=== PATIENT | male | born 1975 | race Caucasian/White ===

== ENCOUNTER 2023-11-18 12:51 | Outpatient (AMB) | payer MEDICARE, MEDICAID, SELFPAY ==
--- NOTE | 2023-11-18 14:09 | MHC.OFFWIV ---
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 He states he cut his finger on a mattress when he was cutting the matress up. He states the metal part of the mattress is what cut him. He states he is unsure if he is up to date on his tetanus vaccine. 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 Cut his finger while throwing a mattess down. PFSH Social History Patient Tobacco Use Status: Current someday Tobacco user Physical Exam Vital Signs: Last Vital Signs Temp 97.0 F 11/18/23 14:16 Pulse 94 11/18/23 14:16 BP 138/76 11/18/23 14:16 Pulse Ox 98 11/18/23 14:16 Oxygen Delivery Method Room Air 11/18/23 14:16 BMI result Body Mass Index 36.7 Skin Other: Left hand: 3 digit, 4 cm laceration on the volar aspect of the finger. Office Procedures Laceration Repair Laceration repair performed by: Richie Card Explained risks and benefits to parent: Yes Location: Left hand3 digit Length: 4 cm Sedation: No Anesthesia: 1% lidocaine Irrigation: saline Preparation: betadine Wound exploration: none Deep closure: No Skin closure: nylon Technique: 4 sutures applied, pt tolerated the procedure well Topical treatment: triple antibiotic Tetanus toxoid ordered: Yes Patient tolerated procedure: well [place]: [place] [id number] Repair 2.6-7.5cm Procedure code (CPT) selection complete Assessment & Plan Assessment & Plan (1) Laceration of finger: Code(s): S61.219A - Laceration without foreign body of unspecified finger without damage to nail, initial encounter Plan Pt to keep hand elevated. Return in one week for suture removal. Orders: Orders Laceration repair Today S61.219A - Laceration without foreign body of unspecified finger without damage to nail, initial encounter Td Immunization Today Z23 - Encounter for immunization Laceration repair Today S61.219A - Laceration without foreign body of unspecified finger without damage to nail, initial encounter Medications: New Tenivac (PF) (tetanus and diphther. tox (PF)) 0.5 mL IM ONCE 0.5 mL 0RF NS Z23 - Encounter for immunization Coding Level of Care Code Est Pt Level 3 (88817) Diagnoses Laceration of finger S61.219A
[2023-11-18 14:16] VITALS: BP 138/76; PULSE 94; TEMP 36.1; O2SAT 98; BMI 36.7
== END 2023-11-18 15:27 | disposition home or self-care (01) ==
PROVIDERS: Visit Provider Internal Medicine
DX: S61.219A Laceration without foreign body of unspecified finger without damage to nail, initial encounter (principal); Z23 Encounter for immunization
CPT/HCPCS: 90471; 90715; 99213

== ENCOUNTER 2023-11-25 08:48 | Outpatient (AMB) | payer MEDICARE, MEDICAID, SELFPAY ==
[2023-11-25 09:10] VITALS: BP 140/80; PULSE 97; TEMP 36.2; O2SAT 98; BMI 36.5
--- NOTE | 2023-11-25 09:10 | AM.OFFWIN_ITS ---
Intake Vital Signs 11/25/23 09:10 Height 6 ft 1 in Weight 277 lb BMI 36.5 BP 140/80 H Blood Pressure Location Lt brachial Position Sitting Pulse 97 Temp 97.2 F Temp Source Temporal Artery Scan Pulse Oximetry (%) 98 Oxygen Delivery Method Room Air Intake Visit Reasons: EP stitches F/U 11/17 Intake Note: ptis here today for stitches F/U Patient Tobacco Use Status: Current someday Tobacco user Allergies No Known Allergies Allergy (Verified 11/25/23 09:13) Do you need a note to return to daycare/school/sports/work: No HPI HPI Comments History of Present Illness Details Patient presents to the walk-in today for sick visit Had stitches placed last week, here for removal Denies any fevers, chills, discharge, redness, warmth PFSH Social History Patient Tobacco Use Status: Current someday Tobacco user Review of Systems Const All systems reviewed & are unremarkable except as noted in HPI and below Physical Exam Vital Signs: Last Vital Signs Temp 97.2 F 11/25/23 09:10 Pulse 97 11/25/23 09:10 BP 140/80 H 11/25/23 09:10 Pulse Ox 98 11/25/23 09:10 Oxygen Delivery Method Room Air 11/25/23 09:10 BMI result Body Mass Index 36.5 General: awake, alert, oriented. Answers questions appropriately. Fully engaged in examination. Skin: 3 sutures to left middle finger removed. laceration healing well. no bleeding, redness, warmth, discharge. HEENT: Normocephalic. Hearing intact. Respiratory: No cough, audible wheezing or stridor. MS: No obvious swelling or deformities. Neurological: Oriented to person, place, time and situation. Psychiatric: Appropriate mood and affect. Good judgment and insight. Assessment & Plan Assessment & Plan (1) Visit for suture removal: Code(s): Z48.02 - Encounter for removal of sutures (2) Visit for wound check: Code(s): Z51.89 - Encounter for other specified aftercare Plan Three sutures to the left middle finger removed. Patient tolerated well. Band- Aid applied. Laceration healing well, no signs of local or systemic infection. Follow up with PCP or return here for any new or worsening symptoms. Coding Level of Care Code Est Pt Level 3 (80832) Diagnoses Visit for suture removal Z48.02 Visit for wound check Z51.89
== END 2023-11-25 10:01 | disposition home or self-care (01) ==
PROVIDERS: Visit Provider Registered Nurse Emergency
DX: Z48.02 Encounter for removal of sutures (principal); Z51.89 Encounter for other specified aftercare
CPT/HCPCS: 15853; 99213

== ENCOUNTER 2023-12-04 21:02 | Inpatient (IN) | payer MEDICARE, MEDICAID, SELFPAY ==
--- NOTE | ~2023-12-04 | XR_ITS ---
EXAMINATION: XR SINUSES CLINICAL INFORMATION: Patient COMPARISON: None available. TECHNIQUE: 3 views of the sinuses were obtained. FINDINGS: Partial opacification of the left maxillary sinus. XR/XR sinus min 3V IMPRESSION: Partial opacification of the left maxillary sinus, which could be better evaluated with a CT sinuses or ENT evaluation if warranted clinically.
--- NOTE | ~2023-12-04 | XR_ITS ---
EXAMINATION: XR CHEST CLINICAL INFORMATION: Reason for Exam congestion COMPARISON: None TECHNIQUE: 2 views of the chest FINDINGS: Lines and tubes: None. Clear lungs. No pleural effusion. No pneumothorax. Normal cardiomediastinal silhouette. XR/XR chest 2V IMPRESSION: * Clear lungs.
[2023-12-04 21:05] VITALS: BP 145/92; PULSE 108; RESP 18; TEMP 37; O2SAT 94; BMI 36.5
--- NOTE | 2023-12-04 21:18 | MHC.CARE ---
[facility] called. Pt was seen in community for SI. Disclosed he was sitting on bed with cord, contemplating completing suicide. Pt has no current community providers. Father completed suicide- Voluntary IPLOC
[2023-12-04 21:51] LABS: Hematocrit 44.9 % (42.0-52.0); Mean Corpuscular HGB Conc 33.4 g/dl (31.0-36.0); Mean Corpuscular Hemoglobin 27.6 pg (27.0-33.0); Mean Corpuscular Volume 82.7 fL (80.0-98.0); Mean Platelet Volume 10.1 fL (9.4-12.4); Platelet Count 315 X10*3/uL (160-400); Red Blood Count 5.43 X10*6/uL (4.60-5.80); Red Cell Distribution Width 15.6 % (11.0-16.0)
[2023-12-04 21:53] LABS: WBC ABN SCTR FOR CBC 1
--- NOTE | 2023-12-04 21:53 | ED_ITS ---
HPI - Psych General Chief Complaint: Psychiatric Symptoms Stated Complaint: crisis Time Seen by Provider: 12/04/23 21:41 Source: patient Mode of arrival: ambulatory Limitations: no limitations History of Present Illness HPI Narrative: Patient comes to the emergency room complaining of suicidal ideation. Patient states that he has had SI in the past, but denies any recent attempts. Patient states that he was at home, considering committing suicide by wrapping the extension cord around his neck. Patient denies HI, patient denies any recent alcohol abuse or drug use. Patient denies being on any medications. Related Data Home Medications ?Medication ?Instructions ?Recorded ?Confirmed No Known Home Meds 11/18/23 11/18/23 Allergies Allergy/AdvReac Type Severity Reaction Status Date / Time No Known Allergies Allergy Verified 12/04/23 21:14 Review of Systems 2 Review of Systems: Constitutional : No Weight loss, No Fever, No Chills, No Night Sweats, No Fatigue, No Malaise ENT/Mouth : No Hearing loss, No Ear Pain, No Nasal Congestion, No Sinus Pain, No Hoarseness, No sore throat, No Rhinorrhea, No Swallowing Difficulty Eyes: No Eye Pain, No Swelling, No Redness, No Foreign Body, No Discharge, No Vision Changes Cardiovascular : No Chest Pain, No SOB, No Dyspnea on Exertion, No Orthopnea, No Edema, No Palpitations Respiratory : No Cough, No Sputum, No Wheezing, No Smoke Exposure, No Dyspnea Gastrointestinal : No Nausea, No Vomiting, No Diarrhea, No Constipation, No abdominal Pain, No Hematochezia, No Melena Genitourinary : no irregular bleeding, No Dysuria, No Urinary Frequency, No Hematuria, No Urinary Incontinence, No Urgency, No Flank Pain, No Urinary Flow Changes, No Hesitancy Musculoskeletal : No joint pain, No Myalgias, No Joint Swelling Skin : No Skin Lesions, No rash Neuro : No Weakness, No Numbness, No Paresthesias, No Loss of Consciousness, No Dizziness, No Headache Psych : Complaining of depression, SI, no HI, denies substance abuse Heme/Lymph: No Bruising, No Bleeding,No Lymphadenopathy Endocrine : No Polyuria, No Polydipsia, No Temperature Intolerance PMFSH Past Medical History Medical History (Updated 12/04/23 @ 21:57 by Eli Khalil MD) Suicidal thoughts Social History Social History Patient Tobacco Use Status: Current someday Tobacco user Advance Directives: No Advance Directives Information Provided: No Physical Exam 2 Vital Signs: Vital Signs: Last Vital Signs Temp 98.6 F 12/04/23 21:05 Pulse 108 H 12/04/23 21:05 Resp 18 12/04/23 21:05 BP 145/92 H 12/04/23 21:05 Pulse Ox 94 12/04/23 21:05 O2 Del Method Room Air 12/04/23 21:05 BMI result Body Mass Index 36.5 Const: Other: Appearance: Alert. Oriented X3. No acute distress. Eyes: Pupils equal, round and reactive to light. ENT: Pharynx normal. Neck: Normal inspection. Neck supple. No lymph nodes noted. No crepitus CVS: Normal heart rate and rhythm. Pulses normal. Normal S1 and S2 Respiratory: No respiratory distress. Breath sounds normal. No Wheezing. No rales Abdomen: Soft and nontender. No rigidity. No distention. Skin: Skin warm and dry. Normal skin color. Normal skin turgor. Extremities: No lower extremity edema. No Lacerations. No Rash Neuro: Oriented X 3. No motor deficit. No sensory deficit. Moving all extremities. No slurred speech. CN 2 through 12 grossly intact Psych: calm, cooperative, normal affect Course Course Course Narrative: -patient calm, cooperative -all of patient's labs pending -care team consult pending -patient is on a Section 12 -physician observation started at 21:55 Medications Administered Generic Name Dose Route Start Last Admin Trade Name Freq PRN Reason Stop Dose Admin Nicotine Polacrilex 2 mg 12/04/23 21:49 12/04/23 23:41 Nicotine Polacrilex 2 Mg Gum BUCCAL 12/06/23 23:59 2 mg QID PRN Administration Nicotine Cravings Medical Decision Making Medical Decision Making MDM Narrative: -the care team evaluate the patient, patient is now inpatient bed search, remains on a Section 12 Differential Diagnosis Differential Diagnoses: The differential diagnosis associated with the presentation includes (Anxiety, depression) Admission/Observation Consideration of admission/observation: Escalation of care including admission/observation considered (Section 12 waiting for the care team to be evaluated) Lab Data 12/04/23 21:44 12/04/23 21:44 Labs: Lab Results 12/04/23 12/04/23 Range/Units 21:33 21:44 WBC 12.2 H (4.8-10.8) X10*3/uL RBC 5.43 (4.60-5.80) X10*6/uL Hgb 15.0 (14.0-18.0) g/dl Hct 44.9 (42.0-52.0) % MCV 82.7 (80.0-98.0) fL MCH 27.6 (27.0-33.0) pg MCHC 33.4 (31.0-36.0) g/dl RDW 15.6 (11.0-16.0) % Plt Count 315 (160-400) X10*3/uL MPV 10.1 (9.4-12.4) fL Immature Gran % (Auto) Cancelled Neut % (Auto) Cancelled Lymph % (Auto) Cancelled [place] % (Auto) Cancelled Eos % (Auto) Cancelled Baso % (Auto) Cancelled Lymph # (Auto) Cancelled [place] # (Auto) Cancelled Eos # (Auto) Cancelled Baso # (Auto) Cancelled Abs Immat Gran (auto) Cancelled Absolute Neuts (auto) Cancelled Absolute Nucleated RBC 0.000 (0.0-0.012) X10*3/uL Nucleated RBC % (auto) 0.0 (0.0-0.2) /100WBC Neutrophils % (Manual) 66 (45-73) % Band Neutrophils % 0 L (3-5) % Lymphocytes % (Manual) 29 (20-40) % Monocytes % (Manual) 4 (2-11) % Eosinophils % (Manual) 1 (0-4) % Abs Neuts (Manual) 8.1 (2.0-8.3) X10*3/uL Lymphocytes # (Manual) 3.5 (1.2-4.9) X10*3/uL Monocytes # (Manual) 0.5 (0.1-1.2) X10*3/uL Eosinophils # (Manual) 0.1 (0.0-0.4) X10*3/uL Platelet Estimate NORMAL (NORMAL) Plt Morphology Comment NORMAL RBC Morphology NORMAL Sodium 144 (135-145) mmol/L Potassium 3.8 (3.3-5.1) mmol/L Chloride 109 H (96-108) mmol/L Carbon Dioxide 22 (22-29) mmol/L Anion Gap 17 (12-20) BUN 13 (9-16) mg/dL Creatinine 1.11 (0.5-1.4) mg/dL Estim Creat Clear Calc 115.4 Estimated GFR > 60 Fasting Glucose 99 (60-99) mg/dL Calcium 9.7 (8.4-10.2) mg/dL Total Bilirubin 0.4 (0.0-1.0) mg/dL AST 17 (5-37) U/L ALT 17 (0-40) U/L Alkaline Phosphatase 90 (39-117) U/L Total Protein 8.3 H (6.5-8.0) g/dL Albumin 4.5 (3.5-5.0) g/dL Urine Color Dark Yellow Urine Appearance Clear Urine pH 5.5 (5.0-9.0) Ur Specific [place] >= 1.030 H (1.005-1.025) Urine Protein 30 (1+) H (Neg-Trace) mg/dL Urine Glucose (UA) Negative (Negative) mg/dL Urine Ketones Trace (Negative) mg/dL Urine Blood Negative (Negative) Urine Nitrite Negative (Negative) Ur Leukocyte Esterase Negative (Negative) Urine RBC 0-2 (0-2) /HPF Urine WBC 0-5 (0-5) /HPF Ur Squamous Epith Cells 0-2 (0-2) /HPF Urine Bacteria None Seen (None Seen) Hyaline Casts 0-2 (0-2) /LPF Salicylates < 5.0 L (15-30) mg/dL Urine Opiates Screen Not Detected (Not Detect) Ur Buprenorphine Scrn Not Detected (Not Detect) ng/mL Ur Oxycodone Screen Not Detected (Not Detect) ng/mL Urine Methadone Screen Not Detected (Not Detect) ng/mL Urine Fentanyl Screen Not Detected (Not Detect) Acetaminophen < 3 (<30) mcg/mL Ur Barbiturates Screen Not Detected (Not Detect) Ur Phencyclidine Scrn Not Detected (Not Detect) Ur Amphetamines Screen Not Detected (Not Detect) U Benzodiazepines Scrn Not Detected (Not Detect) Urine Cocaine Screen Not Detected (Not Detect) U Marijuana (THC) Screen Not Detected (Not Detect) Ethyl Alcohol < 10 mg/dL Discharge Plan Discharge Clinical Impression: Suicidal ideation Patient Disposition: Still a Patient Prescriptions: No Action No Known Home Meds Interventions: [place]-Suicide Risk Severity Scale Last Done: 12/04/23 22:04 Print Language: Burkinan
[2023-12-04 22:07] LABS: Acetaminophen LAB < 3 mcg/mL (<30); Salicylate < 5.0 mg/dL (15-30)
[2023-12-04 22:08] LABS: Alanine Aminotransferase 17 U/L (0-40); Albumin Level 4.5 g/dL (3.5-5.0); Alkaline Phosphatase 90 U/L (39-117); Anion Gap 17 (12-20); Aspartate Amino Transferase 17 U/L (5-37); Bilirubin Total 0.4 mg/dL (0.0-1.0); Blood Urea Nitrogen 13 mg/dL (9-16); Calcium 9.7 mg/dL (8.4-10.2); Carbon Dioxide 22 mmol/L (22-29); Chloride 109 mmol/L (96-108); Creatinine Clr Calc Pharmacy 115.4; Estimated Glomerular Filt Rate > 60; Ethanol < 10 mg/dL; Glucose Fasting 99 mg/dL (60-99); Potassium 3.8 mmol/L (3.3-5.1); Sodium 144 mmol/L (135-145); Total Protein 8.3 g/dL (6.5-8.0)
[2023-12-04 22:08] LABS: Amphetamine Screen Urine Not Detected (Not Detect); Barbiturates, Urine Not Detected (Not Detect); Benzodiazepines Screen Urine Not Detected (Not Detect); Buprenorphine Scr Not Detected (Not Detect); Cannabinoid Screen Urine Not Detected (Not Detect); Cocaine Screen Urine Not Detected (Not Detect); Fentanyl, urine Not Detected (Not Detect); Methadone Screen, Urine Not Detected (Not Detect); Opiate Screen Urine Not Detected (Not Detect); Oxycodone Screen Urine Not Detected (Not Detect); Phencyclidine Screen Urine Not Detected (Not Detect)
[2023-12-04 22:12] LABS: Appearance Urine Clear; Color Urine Dark Yellow; Glucose Urine UA Negative (Negative); Leukocyte Esterase Urine Negative (Negative); Nitrite Urine Negative (Negative); PH 5.5 (5.0-9.0); Specific Gravity - Urine >= 1.030 (1.005-1.025); UMIC TRIGGER UACC YES; Urine Blood Negative (Negative); Urine Ketones Trace mg/dL (Negative); Urine Protein 30 (1+) mg/dL (Neg-Trace)
[2023-12-04 22:15] LABS: Eosinophils Percent Manual 1 % (0-4); Lymphocytes Percent Manual 29 % (20-40); Monocytes Percent Manual 4 % (2-11); Neutrophils Percent Manual 66 % (45-73)
[2023-12-04 22:16] LABS: Eosinophils Absolute Manual 0.1 X10*3/uL (0.0-0.4); Lymphocytes Absolute Manual 3.5 X10*3/uL (1.2-4.9); Monocytes Absolute Manual 0.5 X10*3/uL (0.1-1.2); Platelet Estimate NORMAL (NORMAL); Platelet Morphology Comment NORMAL; RBC Morphology NORMAL; White Blood Count 12.2 X10*3/uL (4.8-10.8)
[2023-12-04 22:17] LABS: Bacteria Urine None Seen (None Seen); Hyaline Casts Urine 0-2 /LPF (0-2); RBC Urine 0-2 /HPF (0-2); Squamous Epithelial Cell Urine 0-2 /HPF (0-2); WBC Urine 0-5 /HPF (0-5)
[2023-12-04 22:17] LABS: Band Neutrophils Percent 0 % (3-5); Neutrophils Absolute Manual 8.1 X10*3/uL (2.0-8.3)
[2023-12-04] MEDS: Nicotine Polacrilex 2 MG GUM BUCCAL (23:41)
[2023-12-05 04:43] VITALS: BP 128/92; PULSE 83; RESP 18; TEMP 36.8; O2SAT 95
[2023-12-05] MEDS: Nicotine Polacrilex 2 MG GUM BUCCAL ×3 (06:26→19:53)
[2023-12-05 10:38] VITALS: BP 131/94; PULSE 71; RESP 18; TEMP 36.7; O2SAT 98
[2023-12-05 13:34] VITALS: BP 132/81; PULSE 82; RESP 18; O2SAT 97; BMI 34.9
--- NOTE | 2023-12-05 14:09 | PC.ADMIT ---
Pt arrived to the unit from [facility] at 1320. Pt arrived via wheelchair with security & staff. Pt arrived to unit on a section 12. Pt came into the ED after being assessed by [facility] in the community for increased depression and SI. Pt was contemplating committing suicide with a cord he had in his bedroom. Pt currently lives in the [facility] in [place]. Pt is calm, cooperative, & pleasant. Poor eye contact. Pt does have a history of PTSD. Pt's father murdered his step-mom and then completed suicide when Patient was 15 years old. Pt was then sent to live with his biological mother who was an alcoholic. Pt does have a history of a prior suicide attempt. Pt used to superficially cut wrists. Pt has 1 prior suicide attempt around 5 years ago via hanging. Pt has not been on medications and has not had any outpatient providers for the past 5 years. Pt smokes 1/2 pack of cigarettes a day. Smoking cessation consult placed. Tox Screen Negative. Oriented to unit.
--- NOTE | 2023-12-05 14:58 | HO.PSYADMNOT ---
HPI Date of Service: 12/05/23 Chief Complaint: depression, si Sources of Information: patient interviewed, chart reviewed and crisis/core team assessment reviewed HPI Subjective Notes: Han Warning and Section 12B Healthcare Proxy: No Guardianship: No Medical Problems Affecting Mental Status: No Narrative: Pt is a 48 yo single male who was evaluated by [facility] mobile crisis at patietnt's request due to SI. He came to [facility] reporting Si with plan to strangle self with extension cord. Pt is a section 12 B. He reports at least a month of increasing depressiona nd SI. he reports the preciptant is the upcoming anniversary of his father's on December 28. Pt tells me that his father killed his step mother and then killed himself when client age 15. He says he usually leaves out the murder part. but that it was a murder suicide when his father killed himself. Pt reports witnessing years of Dv before this. He states he lived in [facility] at the time and had not seen his bio mother for years before this. He reports she is an alcoholic. Once his father his mother came to get him and he lived with her and her drinking for years - he moved to [place] then. He states he was in a children's home at when he was 16 or 17 yo. Pt states he has intrusive memories of trauma from his childhood; he denies nightmares but reports significant trouble sleeping at night with poor sleep initiation. he reports chronic intermittent SI. he feels isolated and feels no sense of purpose. He is not close to any family. he has a few male friends he talks to. He reports depressed mood. He makes little ey contact. He reports being able to contract for safety on unit and wants help. He is not on any meds now but has been on inpast- he is not sure if they helped. He reports interest in therapy and meds Pt denies any period of elation, manic behavior. He does report periods of being very easily frustrated or quick to anger- he says his coping skills were to get a coffee and smoke a cigarette to calm down. he denies every having been violent with others. He reports he used to use alcohol heavlily and stopped 2.5 yrs ago because he didn't like how he behaved when drunk. he denies THC or opiates any other street drug use. He smokes 1/2 ppd of cigarettes. He has no hx of legal problems. 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 He enjoys watching baseball, listening to music or taking a walk. Past Psychiatric History: IPLOC as teen and in adulthood. previous inpat at [facility] and [facility] but didn't know year. residential treatment as child in [place] and inpatient psych at [facility] age 17 previous meds: zoloft, paxil and lithium- does not recall if effective denies previous beck episodes. 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[employer], construction; last relationship 3 yrs ago - he reports very toxic; denies violence with others Substance History: etoh heavy use 2.5 yrs ago, tobacco use; no THC, No opiates, no cocaine, no other TELLEZ Trauma History: witness Dv as child, parental separation, father committed murder suicide when pt age 15, loss of parents, bio mo ETOHIC, as adult near experience with first episode TTP Diagnostics Vital Signs (24Hr): Vital Signs - 24 hr 12/04/23 21:05 12/05/23 04:43 12/05/23 10:38 Temperature 98.6 F 98.3 F 98.1 F Pulse Rate 108 H 83 71 Respiratory Rate 18 18 18 Blood Pressure 145/92 H 128/92 H 131/94 H Pulse Oximetry 94 95 98 Oxygen Delivery Method Room Air Room Air Room Air 12/05/23 13:34 Temperature Pulse Rate 82 Respiratory Rate 18 Blood Pressure 132/81 Pulse Oximetry 97 Oxygen Delivery Method Room Air BMI result Body Mass Index 34.9 Labs 12/04/23 21:44 12/04/23 21:44 Labs: Laboratory Results - last 48 hr 12/04/23 12/04/23 21:33 21:44 WBC 12.2 H RBC 5.43 Hgb 15.0 Hct 44.9 MCV 82.7 MCH 27.6 MCHC 33.4 RDW 15.6 Plt Count 315 MPV 10.1 Immature Gran % (Auto) Cancelled Neut % (Auto) Cancelled Lymph % (Auto) Cancelled [place] % (Auto) Cancelled Eos % (Auto) Cancelled Baso % (Auto) Cancelled Lymph # (Auto) Cancelled [place] # (Auto) Cancelled Eos # (Auto) Cancelled Baso # (Auto) Cancelled Abs Immat Gran (auto) Cancelled Absolute Neuts (auto) Cancelled Absolute Nucleated RBC 0.000 Nucleated RBC % (auto) 0.0 Neutrophils % (Manual) 66 Band Neutrophils % 0 L Lymphocytes % (Manual) 29 Monocytes % (Manual) 4 Eosinophils % (Manual) 1 Abs Neuts (Manual) 8.1 Lymphocytes # (Manual) 3.5 Monocytes # (Manual) 0.5 Eosinophils # (Manual) 0.1 Platelet Estimate NORMAL Plt Morphology Comment NORMAL RBC Morphology NORMAL Sodium 144 Potassium 3.8 Chloride 109 H Carbon Dioxide 22 Anion Gap 17 BUN 13 Creatinine 1.11 Estim Creat Clear Calc 115.4 Estimated GFR > 60 Fasting Glucose 99 Calcium 9.7 Total Bilirubin 0.4 AST 17 ALT 17 Alkaline Phosphatase 90 Total Protein 8.3 H Albumin 4.5 Urine Color Dark Yellow Urine Appearance Clear Urine pH 5.5 Ur Specific [place] >= 1.030 H Urine Protein 30 (1+) H Urine Glucose (UA) Negative Urine Ketones Trace Urine Blood Negative Urine Nitrite Negative Ur Leukocyte Esterase Negative Urine RBC 0-2 Urine WBC 0-5 Ur Squamous Epith Cells 0-2 Urine Bacteria None Seen Hyaline Casts 0-2 Salicylates < 5.0 L Urine Opiates Screen Not Detected Ur Buprenorphine Scrn Not Detected Ur Oxycodone Screen Not Detected Urine Methadone Screen Not Detected Urine Fentanyl Screen Not Detected Acetaminophen < 3 Ur Barbiturates Screen Not Detected Ur Phencyclidine Scrn Not Detected Ur Amphetamines Screen Not Detected U Benzodiazepines Scrn Not Detected Urine Cocaine Screen Not Detected U Marijuana (THC) Screen Not Detected Ethyl Alcohol < 10 Meds/Allergies Meds Home Medications ?Medication ?Instructions ?Recorded ?Confirmed ?Type No Known Home Meds 11/18/23 11/18/23 History Allergies Allergies Allergy/AdvReac Type Severity Reaction Status Date / Time No Known Allergies Allergy Verified 12/04/23 21:14 Mental Status Exam Mental Status Exam Patient Appearance: Fatigued and Appropriate Patient Orientation: Person, Place, Time and Situation Level of Consciousness: Awake Patient Behavior: Appropriate, Guarded and Poor Eye Contact Mood Description: Constricted, Flat and Sad Affect Description: Withdrawn, Constricted, Flat and Sad Patient Cognition Impaired: No Ability to Follow Directions: Good Speech Pattern: Clear, Appropriate and Spontaneous Speech Memory Description: Remote Impaired and Episodic Impaired Hallucinations: None Delusions: Not Present Thought Process: Intact and Distracted Thought Content: positive for Intact, positive for Preoccupation (with loss/trauma ) and positive for Suicidal Ideation Judgement: Fair Assessment & Plan Assessment & Plan (1) Major depressive disorder, recurrent severe without psychotic features: Status: Acute Code(s): F33.2 - Major depressive disorder, recurrent severe without psychotic features (2) Suicidal ideation: Status: Acute Code(s): R45.851 - Suicidal ideations Plan admit to [facility] on 12 B collect collateral info start lexapro 5 mg daily labs: folate, TSH, T4 A1C, Magnesium level, B12 level. consider lithium for chronic SI referral to trauma therapist and out pt psychiatry Patient educated on: diagnosis, medication risk/benefits and therapeutic strategies Informed Consent: understands and further education needed Reason for continued inpatient stay Substantial Risk for: harm to self, inability to function and rapid decompensation Statement Statement: I have reviewed the history and physical and performed a pertinent examination on my patient. No changes have occurred unless specified. If the History and Physical was not performed prior to admission, the Hospitalist's service will be consulted for completing the admission physical. Time Spent With Patient Time: Total time managing care of this patient today ___60_ minutes.
[2023-12-05] MEDS: traZODone HCL 50 MG TABLET PO (19:57)
[2023-12-05 20:00] VITALS: BP 139/83; PULSE 80; TEMP 36.9; O2SAT 97
[2023-12-06 08:00] VITALS: BP 117/59; PULSE 74; RESP 18; TEMP 36.5; O2SAT 96
[2023-12-06 08:34] LABS: Estimated Average Glucose 117 mg/dL; Hemoglobin A1c % 5.7 % (<6.0)
[2023-12-06 08:58] LABS: Cholesterol 225 mg/dL (<200); HDL Cholesterol 41 mg/dL (>40); LDL Cholesterol Calculated 157 mg/dL (<100); Triglycerides 136 mg/dL (<150)
[2023-12-06 09:01] LABS: Free T4 (Free Thyroxine) 0.78 ng/dL (0.71-1.85); Thyroid Stimulating Hormone 1.88 uIU/mL (0.32-4.0)
[2023-12-06 09:12] LABS: Folate 8.7 ng/mL (> or = 4.0); Vitamin B12 312 pg/mL (200-900)
[2023-12-06] MEDS: Nicotine Polacrilex 2 MG GUM BUCCAL ×2 (10:06→16:14)
[2023-12-06] MEDS: Escitalopram Oxalate 5 MG TABLET PO (10:06)
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
[2023-12-06] MEDS: Nicotine Polacrilex 2 MG GUM 4 MG BUCCAL ×2 (18:52→21:40)
[2023-12-06 20:00] VITALS: BP 119/73; PULSE 75; RESP 18; TEMP 36.8; O2SAT 97
[2023-12-06] MEDS: traZODone HCL 100 MG TABLET PO (21:31)
[2023-12-07 08:00] VITALS: BP 117/63; PULSE 88; RESP 18; TEMP 36; O2SAT 96
[2023-12-07] MEDS: Escitalopram Oxalate 5 MG TABLET PO (09:25)
[2023-12-07] MEDS: Nicotine Polacrilex 2 MG GUM 4 MG BUCCAL ×4 (09:52→21:15)
--- NOTE | 2023-12-07 12:25 | HO.PSYCHPN ---
Subjective Subjective Date of Service: 12/07/23 Reason For Visit: depression, si Interim History: Met with patient; discussed with team; reviewed chart Patient says he is doing okay, still quite depressed; discussed that he has had really no history of medication trials, the few things he tried he quit after a week but that he is now really eager to not feel depressed anymore. Said he slept well with trazodone. Tolerating Lexapro and agrees to increase dose. Mental Status Exam Mental Status Exam Narrative: Pt is alert and oriented; behavior is isolative but cooperative on approach, calm; patient is not in distress; dressed in casual attire with adequate hygiene; mood is described as depressed and affect congruent, downcast; eye contact minimal; Speech is a little slowed, a little soft; normal prosody; not pressured; psychomotor retardation present; thought process is organized and goal directed; Thought content is on tx, trauma history; otherwise pertinent to relevant topics and without any delusional content, paranoid ideations or grandiosity; denies any SI/HI. There is no evidence of perceptual disturbance. Patients insight and judgment impaired Diagnostics Vital Signs (24Hr): Vital Signs - 24 hr 12/06/23 20:00 12/07/23 08:00 Temperature 98.3 F 96.8 F Pulse Rate 75 88 Respiratory Rate 18 18 Blood Pressure 119/73 117/63 Pulse Oximetry 97 96 Oxygen Delivery Method Room Air Room Air BMI result Body Mass Index 34.9 Labs 12/04/23 21:44 12/04/23 21:44 Labs: Laboratory Results - last 48 hr 12/06/23 08:03 Estimat Average Glucose 117 Hemoglobin A1c % 5.7 Magnesium 2.0 Triglycerides 136 Cholesterol 225 H LDL Cholesterol, Calc 157 H HDL Cholesterol 41 Vitamin B12 312 Folate 8.7 TSH 1.88 Free T4 0.78 Medications Medications Current Medications Acetaminophen (Acetaminophen 325 Mg Tablet) 650 mg PO Q6H PRN PRN Reason: Headache/Pain Mild Scale (1-3) Al Hydroxide/Mg Hydroxide (Magnesium Hydrox/Alum Hydrox 30 Ml Oral.Susp) 30 ml PO Q6H PRN PRN Reason: Heartburn/Nausea Escitalopram Oxalate (Escitalopram Oxalate 5 Mg Tablet) 5 mg PO DAILY JENNIFER Last Admin: 12/07/23 09:25 Dose: 5 mg Hydroxyzine HCl (Hydroxyzine Hcl 25 Mg Tablet) 25 mg PO Q6H PRN PRN Reason: Anxiety Magnesium Hydroxide (Milk Of Magnesia 30 Ml Oral.Susp) 30 ml PO DAILY PRN PRN Reason: Constipation Nicotine (Nicotine 21 Mg Patch.Td24) 21 mg TRANSDERMA DAILY PRN PRN Reason: smoking cessation Nicotine Polacrilex (Nicotine Polacrilex 2 Mg Gum) 4 mg BUCCAL Q2H PRN PRN Reason: Nicotine Cravings Last Admin: 12/07/23 09:52 Dose: 4 mg Trazodone HCl (Trazodone Hcl 100 Mg Tablet) 100 mg PO BEDTIME JENNIFER Last Admin: 12/06/23 21:31 Dose: 100 mg Trazodone HCl (Trazodone Hcl 50 Mg Tablet) 50 mg PO BEDTIME PRN PRN Reason: Insomnia Allergies Allergies Allergy/AdvReac Type Severity Reaction Status Date / Time No Known Allergies Allergy Verified 12/04/23 21:14 Assessment & Plan Assessment & Plan (1) Major depressive disorder, recurrent severe without psychotic features: Status: Acute Code(s): F33.2 - Major depressive disorder, recurrent severe without psychotic features (2) Suicidal ideation: Status: Acute Code(s): R45.851 - Suicidal ideations Plan Hospital course: 12/06 Patient says he is doing okay, still quite depressed; discussed that he has had really no history of medication trials, the few things he tried he quit after a week but that he is now really eager to not feel depressed anymore. Said he slept well with trazodone. Tolerating Lexapro and agrees to increase dose. Plan: CV Q 15 minute checks Increased lexapro 10 mg daily labs: folate, TSH, T4 A1C, Magnesium level, B12 level. Increase Trazodone to 100 mg HS with 50 mg HS prn consider lithium for chronic SI referral to trauma therapist and out pt psychiatry Encourage milieu involvement Patient educated on: diagnosis and medication risk/benefits Informed Consent: understands Reason for continued inpatient stay Substantial Risk for: rapid decompensation Time Spent With Patient Time: Total time managing care of this patient today ____ minutes.
[2023-12-07 20:00] VITALS: BP 142/86; PULSE 88; RESP 17; TEMP 36.7; O2SAT 97
[2023-12-07] MEDS: traZODone HCL 100 MG TABLET PO (21:14)
[2023-12-08 08:13] VITALS: BP 116/60; PULSE 75; RESP 16; TEMP 36.5; O2SAT 97
[2023-12-08] MEDS: Escitalopram Oxalate 10 MG TABLET PO (08:20)
--- NOTE | 2023-12-08 09:55 | HO.PSYCHPN ---
Subjective Subjective Date of Service: 12/08/23 Reason For Visit: depression, si Interim History: Met with patient; discussed with team Reports continues to sleep well with trazodone; still remains depressed but no problems with increased Lexapro. Difficult with which to engage but cooperative and polite on approach. Mental Status Exam Mental Status Exam Narrative: Pt is alert and oriented; behavior is isolative but cooperative on approach, calm; patient is not in distress; dressed in casual attire with adequate hygiene; mood is described as depressed and affect congruent, downcast; eye contact minimal; Speech is a little slowed, a little soft; normal prosody; not pressured; psychomotor retardation present; thought process is organized and goal directed; Thought content is on tx, trauma history; otherwise pertinent to relevant topics and without any delusional content, paranoid ideations or grandiosity; denies any SI/HI. There is no evidence of perceptual disturbance. Patients insight and judgment impaired Diagnostics Vital Signs (24Hr): Vital Signs - 24 hr 12/07/23 20:00 12/08/23 08:13 Temperature 98.1 F 97.7 F Pulse Rate 88 75 Respiratory Rate 17 16 Blood Pressure 142/86 H 116/60 Pulse Oximetry 97 97 Oxygen Delivery Method Room Air Room Air BMI result Body Mass Index 34.9 Labs 12/04/23 21:44 12/04/23 21:44 Medications Medications Current Medications Acetaminophen (Acetaminophen 325 Mg Tablet) 650 mg PO Q6H PRN PRN Reason: Headache/Pain Mild Scale (1-3) Al Hydroxide/Mg Hydroxide (Magnesium Hydrox/Alum Hydrox 30 Ml Oral.Susp) 30 ml PO Q6H PRN PRN Reason: Heartburn/Nausea Clonidine HCl (Clonidine Hcl 0.1 Mg Tablet) 0.1 mg PO Q4H PRN; Protocol PRN Reason: moderate anxiety Escitalopram Oxalate (Escitalopram Oxalate 10 Mg Tablet) 10 mg PO DAILY JENNIFER Last Admin: 12/08/23 08:20 Dose: 10 mg Hydroxyzine HCl (Hydroxyzine Hcl 25 Mg Tablet) 25 mg PO Q6H PRN PRN Reason: Anxiety Magnesium Hydroxide (Milk Of Magnesia 30 Ml Oral.Susp) 30 ml PO DAILY PRN PRN Reason: Constipation Nicotine (Nicotine 21 Mg Patch.Td24) 21 mg TRANSDERMA DAILY PRN PRN Reason: smoking cessation Nicotine Polacrilex (Nicotine Polacrilex 2 Mg Gum) 4 mg BUCCAL Q2H PRN PRN Reason: Nicotine Cravings Last Admin: 12/07/23 21:15 Dose: 4 mg Trazodone HCl (Trazodone Hcl 100 Mg Tablet) 100 mg PO BEDTIME JENNIFER Last Admin: 12/07/23 21:14 Dose: 100 mg Trazodone HCl (Trazodone Hcl 50 Mg Tablet) 50 mg PO BEDTIME PRN PRN Reason: Insomnia Allergies Allergies Allergy/AdvReac Type Severity Reaction Status Date / Time No Known Allergies Allergy Verified 12/04/23 21:14 Assessment & Plan Assessment & Plan (1) Major depressive disorder, recurrent severe without psychotic features: Status: Acute Code(s): F33.2 - Major depressive disorder, recurrent severe without psychotic features (2) Suicidal ideation: Status: Acute Code(s): R45.851 - Suicidal ideations Plan Hospital course: 12/06 Patient says he is doing okay, still quite depressed; discussed that he has had really no history of medication trials, the few things he tried he quit after a week but that he is now really eager to not feel depressed anymore. Said he slept well with trazodone. Tolerating Lexapro and agrees to increase dose. 12/07 continue current treatment plan Plan: CV Q 15 minute checks Increased lexapro 10 mg daily labs: folate, TSH, T4 A1C, Magnesium level, B12 level. Increase Trazodone to 100 mg HS with 50 mg HS prn consider lithium for chronic SI referral to trauma therapist and out pt psychiatry Encourage milieu involvement Patient educated on: diagnosis and medication risk/benefits Informed Consent: understands Reason for continued inpatient stay Substantial Risk for: rapid decompensation Time Spent With Patient Time: Total time managing care of this patient today ____ minutes.
[2023-12-08] MEDS: Nicotine Polacrilex 2 MG GUM 4 MG BUCCAL ×3 (11:22→19:50)
[2023-12-08 20:00] VITALS: PULSE 74; RESP 18; TEMP 36.4
[2023-12-08] MEDS: traZODone HCL 100 MG TABLET PO (20:51)
[2023-12-09] MEDS: Nicotine Polacrilex 2 MG GUM 4 MG BUCCAL ×4 (06:58→22:56)
[2023-12-09 08:17] VITALS: BP 130/76; PULSE 88; RESP 16; TEMP 36.2; O2SAT 96
[2023-12-09] MEDS: Escitalopram Oxalate 10 MG TABLET PO (08:24)
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
[2023-12-09 20:00] VITALS: BP 130/81; PULSE 77; RESP 18; TEMP 36.7; O2SAT 96
[2023-12-09] MEDS: Mirtazapine 15 MG TABLET PO (22:56)
[2023-12-10 08:00] VITALS: BP 123/66; PULSE 77; RESP 16; TEMP 36.6; O2SAT 96
[2023-12-10] MEDS: Escitalopram Oxalate 10 MG TABLET PO (08:46)
--- NOTE | 2023-12-10 09:35 | P.PNPSI_ITS ---
Subjective Subjective Date of Service: 12/10/23 Reason For Visit: depression, si Subjective Notes: Conditional Voluntary Healthcare Proxy: No Guardianship: No Medical Problems Affecting Mental Status: No Interim History: Pt reports not feeling well today. Reports sore muscles. Will decrease Mirtazapine 15 mg to 7.5 mg which we initiated last evening and test for SARS/Flu/Covid. Pt did check his phone today and [facility] has made contact with him indicating they would be in contact in ~45 days to open his case. He was pleased with this. Encouraged to attend groups. Medication Compliance: Yes Side effects from medications: Yes (??) Attending Groups: No Review of Systems Acute medical concerns: No Medical Review of Systems: unchanged Review of Systems Review of Systems Reports not feeling well, sore muscles. RSV/SARS/Flu testing ordered. Mental Status Exam Mental Status Exam Patient Appearance: Appropriate Patient Orientation: Person, Place, Time and Situation Level of Consciousness: Alert Patient Behavior: Appropriate, Talkative, Cooperative and Poor Eye Contact Mood Description: Depressed Affect Description: Flat Patient Cognition Impaired: No Ability to Follow Directions: Good Speech Pattern: Spontaneous Speech Memory Description: Intact Hallucinations: None Delusions: Not Present Perceptual Disturbances: Depersonalization and Derealization Thought Process: Rumination Thought Content: positive for Perseveration Depressive Symptoms: Insomnia, Difficulty Sleeping, Feelings of Worthlessness, Isolating-Friends/Family, Low Self Esteem and Loss of Energy Judgement: Fair Diagnostics Vital Signs (24Hr): Vital Signs - 24 hr 12/09/23 20:00 12/10/23 08:00 Temperature 98.0 F 97.9 F Pulse Rate 77 77 Respiratory Rate 18 16 Blood Pressure 130/81 123/66 Pulse Oximetry 96 96 Oxygen Delivery Method Room Air Room Air BMI result Body Mass Index 34.9 Labs 12/04/23 21:44 12/04/23 21:44 Medications Medications Current Medications Acetaminophen (Acetaminophen 325 Mg Tablet) 650 mg PO Q6H PRN PRN Reason: Headache/Pain Mild Scale (1-3) Al Hydroxide/Mg Hydroxide (Magnesium Hydrox/Alum Hydrox 30 Ml Oral.Susp) 30 ml PO Q6H PRN PRN Reason: Heartburn/Nausea Clonidine HCl (Clonidine Hcl 0.1 Mg Tablet) 0.1 mg PO Q4H PRN; Protocol PRN Reason: moderate anxiety Escitalopram Oxalate (Escitalopram Oxalate 10 Mg Tablet) 10 mg PO DAILY JENNIFER Last Admin: 12/10/23 08:46 Dose: 10 mg Hydroxyzine HCl (Hydroxyzine Hcl 25 Mg Tablet) 25 mg PO Q6H PRN PRN Reason: Anxiety Magnesium Hydroxide (Milk Of Magnesia 30 Ml Oral.Susp) 30 ml PO DAILY PRN PRN Reason: Constipation Mirtazapine (Mirtazapine 15 Mg Tablet) 15 mg PO BEDTIME [facility] Last Admin: 12/09/23 22:56 Dose: 15 mg Nicotine (Nicotine 21 Mg Patch.Td24) 21 mg TRANSDERMA DAILY PRN PRN Reason: smoking cessation Nicotine Polacrilex (Nicotine Polacrilex 2 Mg Gum) 4 mg BUCCAL Q2H PRN PRN Reason: Nicotine Cravings Last Admin: 12/09/23 22:56 Dose: 4 mg Trazodone HCl (Trazodone Hcl 50 Mg Tablet) 50 mg PO BEDTIME PRN PRN Reason: Insomnia Allergies Allergies Allergy/AdvReac Type Severity Reaction Status Date / Time No Known Allergies Allergy Verified 12/04/23 21:14 Assessment & Plan Assessment & Plan (1) Major depressive disorder, recurrent severe without psychotic features: Status: Acute Code(s): F33.2 - Major depressive disorder, recurrent severe without psychotic features (2) Suicidal ideation: Status: Acute Code(s): R45.851 - Suicidal ideations Plan Hospital course: 12/06 Patient says he is doing okay, still quite depressed; discussed that he has had really no history of medication trials, the few things he tried he quit after a week but that he is now really eager to not feel depressed anymore. Said he slept well with trazodone. Tolerating Lexapro and agrees to increase dose. 12/07 continue current treatment plan 12/09/23 DC Trazodone scheduled dose. Continue 50 mg HS prn Mirtazapine 15 mg HS 12/10/23 Decrease Mirtazapine to 7.5 mg hs Plan: CV Q 15 minute checks Increased lexapro 10 mg daily labs: folate, TSH, T4 A1C, Magnesium level, B12 level. Increase Trazodone to 100 mg HS with 50 mg HS prn consider lithium for chronic SI referral to trauma therapist and out pt psychiatry Encourage milieu involvement Patient educated on: medication risk/benefits and therapeutic strategies Informed Consent: understands Reason for continued inpatient stay Substantial Risk for: rapid decompensation Time Spent With Patient Time: Total time managing care of this patient today ____ minutes.
[2023-12-10] MEDS: Nicotine Polacrilex 2 MG GUM 4 MG BUCCAL ×4 (10:47→22:06)
[2023-12-10] MEDS: Acetaminophen 325 MG TABLET 650 MG PO (13:12)
[2023-12-10 17:48] LABS: Influenza A PCR NEGATIVE (Negative); Influenza B PCR NEGATIVE (Negative); Resp Syncy Virus RNA Qual PCR NEGATIVE (Negative); SARS COV2 PCR INHOUSE NEGATIVE (Negative)
[2023-12-10 19:44] VITALS: RESP 16
[2023-12-10] MEDS: Mirtazapine 7.5 MG TABLET PO (22:06)
[2023-12-11 08:00] VITALS: BP 130/63; PULSE 75; RESP 16; TEMP 36.5; O2SAT 97
[2023-12-11] MEDS: Escitalopram Oxalate 10 MG TABLET PO (09:36)
[2023-12-11] MEDS: Nicotine Polacrilex 2 MG GUM 4 MG BUCCAL ×2 (09:38→21:20)
--- NOTE | 2023-12-11 10:44 | HO.PSYCHPN ---
Subjective Subjective Date of Service: 12/11/23 Reason For Visit: depression, si Subjective Notes: Conditional Voluntary Healthcare Proxy: No Guardianship: No Medical Problems Affecting Mental Status: No Interim History: Attended group, able to participate, group leaders praised his participation. Continues with severe depressive sx. Anniversary of father/step mother murder suicide in 12/29/23. Review of meds. 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 Review of recent labs, platlets. Several medications discussed. Review of [place], Risperdal which have some risk with hx of TTP. Will trial Olanzapine as it has less risk for pt. Pt continues with SI. He is attempting to integrate into the milieu and work with the program and today is much more visable with peers and participation. Medication Compliance: Yes Side effects from medications: Yes (muscle aches) Attending Groups: Yes Review of Systems Acute medical concerns: No Medical Review of Systems: unchanged Review of Systems Musculoskeletal: Reports myalgias Mental Status Exam Mental Status Exam Patient Appearance: Appropriate Patient Orientation: Person, Place, Time and Situation Level of Consciousness: Alert Patient Behavior: Appropriate, Talkative, Cooperative and Poor Eye Contact Mood Description: Depressed Affect Description: Flat Patient Cognition Impaired: No Ability to Follow Directions: Good Speech Pattern: Spontaneous Speech Memory Description: Intact Hallucinations: None Delusions: Not Present Perceptual Disturbances: Depersonalization and Derealization Thought Process: Rumination Thought Content: positive for Perseveration and positive for Suicidal Ideation Depressive Symptoms: Insomnia, Difficulty Sleeping, Feelings of Worthlessness, Isolating-Friends/Family, Thoughts of /Suicide, Low Self Esteem and Loss of Energy Judgement: Fair Diagnostics Vital Signs (24Hr): Vital Signs - 24 hr 12/10/23 19:44 12/11/23 08:00 Temperature 97.7 F Pulse Rate 75 Respiratory Rate 16 16 Blood Pressure 130/63 Pulse Oximetry 97 Oxygen Delivery Method Room Air BMI result Body Mass Index 34.9 Labs 12/04/23 21:44 12/04/23 21:44 Labs: Laboratory Results - last 48 hr 12/10/23 Unknown Influenza Type A (PCR) NEGATIVE Influenza Type B (PCR) NEGATIVE RSV RNA Qual (PCR) NEGATIVE SARS-CoV-2 RNA (RT-PCR) NEGATIVE Medications Medications Current Medications Acetaminophen (Acetaminophen 325 Mg Tablet) 650 mg PO Q6H PRN PRN Reason: Headache/Pain Mild Scale (1-3) Last Admin: 12/10/23 13:12 Dose: 650 mg Al Hydroxide/Mg Hydroxide (Magnesium Hydrox/Alum Hydrox 30 Ml Oral.Susp) 30 ml PO Q6H PRN PRN Reason: Heartburn/Nausea Clonidine HCl (Clonidine Hcl 0.1 Mg Tablet) 0.1 mg PO Q4H PRN; Protocol PRN Reason: moderate anxiety Escitalopram Oxalate (Escitalopram Oxalate 10 Mg Tablet) 10 mg PO DAILY [facility] Last Admin: 12/11/23 09:36 Dose: 10 mg Hydroxyzine HCl (Hydroxyzine Hcl 25 Mg Tablet) 25 mg PO Q6H PRN PRN Reason: Anxiety Magnesium Hydroxide (Milk Of Magnesia 30 Ml Oral.Susp) 30 ml PO DAILY PRN PRN Reason: Constipation Mirtazapine (Mirtazapine 7.5 Mg Tablet) 7.5 mg PO BEDTIME [facility] Last Admin: 12/10/23 22:06 Dose: 7.5 mg Nicotine (Nicotine 21 Mg Patch.Td24) 21 mg TRANSDERMA DAILY PRN PRN Reason: smoking cessation Nicotine Polacrilex (Nicotine Polacrilex 2 Mg Gum) 4 mg BUCCAL Q2H PRN PRN Reason: Nicotine Cravings Last Admin: 12/11/23 09:38 Dose: 4 mg Trazodone HCl (Trazodone Hcl 50 Mg Tablet) 50 mg PO BEDTIME PRN PRN Reason: Insomnia Allergies Allergies Allergy/AdvReac Type Severity Reaction Status Date / Time No Known Allergies Allergy Verified 12/04/23 21:14 Assessment & Plan Assessment & Plan (1) Major depressive disorder, recurrent severe without psychotic features: Status: Acute Code(s): F33.2 - Major depressive disorder, recurrent severe without psychotic features (2) Suicidal ideation: Status: Acute Code(s): R45.851 - Suicidal ideations Plan Hospital course: 12/06 Patient says he is doing okay, still quite depressed; discussed that he has had really no history of medication trials, the few things he tried he quit after a week but that he is now really eager to not feel depressed anymore. Said he slept well with trazodone. Tolerating Lexapro and agrees to increase dose. 12/07 continue current treatment plan 12/09/23 DC Trazodone scheduled dose. Continue 50 mg HS prn Mirtazapine 15 mg HS 12/10/23 Decrease Mirtazapine to 7.5 mg hs 12/10: Discontinue Remeron Olanzapine 5 mg bid Plan: CV Q 15 minute checks Increased lexapro 10 mg daily labs: folate, TSH, T4 A1C, Magnesium level, B12 level. Increase Trazodone to 100 mg HS with 50 mg HS prn consider lithium for chronic SI referral to trauma therapist and out pt psychiatry Encourage milieu involvement Reason for continued inpatient stay Substantial Risk for: rapid decompensation Time Spent With Patient Time: Total time managing care of this patient today ____ minutes.
[2023-12-11] MEDS: OLANZapine 5 MG TABLET PO (21:20)
--- NOTE | 2023-12-12 | ECG_ITS ---
Test Reason : CHEST PAIN Blood Pressure : / mmHG Vent. Rate : 060 BPM Atrial Rate : 060 BPM P-R Int : 134 ms QRS Dur : 100 ms QT Int : 396 ms P-R-T Axes : 039 -12 031 degrees QTc Int : 396 ms Normal sinus rhythm Normal ECG No previous ECGs available Referred By: Tracy Castelan Electronically Signed By:Will Diaz
[2023-12-12 07:00] VITALS: BMI 35.6
[2023-12-12 08:00] VITALS: BP 137/67; PULSE 78; RESP 16; TEMP 36.8; O2SAT 94
[2023-12-12] MEDS: OLANZapine 5 MG TABLET PO (08:59)
[2023-12-12] MEDS: Escitalopram Oxalate 10 MG TABLET PO (08:59)
[2023-12-12 14:27] LABS: MANUAL DIFF FLAG NO
[2023-12-12 14:35] LABS: Basophils Percent Auto 0.4 % (0-2); Eosinophils Absolute Auto 0.2 X10*3/uL (0.0-0.4); Eosinophils Percent Auto 1.9 % (0-4); Hematocrit 44.5 % (42.0-52.0); Hemoglobin 14.4 g/dl (14.0-18.0); Imm Gran Abs Auto 0.03 X10*3/uL (0.00-0.03); Imm Gran Pct Auto 0.3 % (0.0-0.4); Lymphocytes Absolute Auto 2.8 X10*3/uL (1.2-4.9); Lymphocytes Percent Auto 28.3 % (20-40); Mean Corpuscular HGB Conc 32.4 g/dl (31.0-36.0); Mean Corpuscular Hemoglobin 27.5 pg (27.0-33.0); Mean Corpuscular Volume 84.9 fL (80.0-98.0); Mean Platelet Volume 11.5 fL (9.4-12.4); Monocytes Absolute Auto 0.9 X10*3/uL (0.1-1.2); Monocytes Percent Auto 9.4 % (2-11); Neutrophils Percent Auto 59.7 % (45-73); Platelet Count 291 X10*3/uL (160-400); Red Blood Count 5.24 X10*6/uL (4.60-5.80); Red Cell Distribution Width 15.1 % (11.0-16.0)
[2023-12-12 15:00] LABS: Alanine Aminotransferase 17 U/L (0-40); Albumin Level 3.8 g/dL (3.5-5.0); Alkaline Phosphatase 89 U/L (39-117); Anion Gap 16 (12-20); Aspartate Amino Transferase 16 U/L (5-37); Bilirubin Total 0.2 mg/dL (0.0-1.0); Blood Urea Nitrogen 21 mg/dL (9-16); Calcium 9.6 mg/dL (8.4-10.2); Carbon Dioxide 26 mmol/L (22-29); Chloride 106 mmol/L (96-108); Creatinine Clr Calc Pharmacy 118.2; Estimated Glomerular Filt Rate > 60; Glucose Random 102 mg/dL (60-115); Potassium 4.7 mmol/L (3.3-5.1); Sodium 143 mmol/L (135-145); Total Protein 7.6 g/dL (6.5-8.0)
--- NOTE | 2023-12-12 15:32 | HO.PSYCHPN ---
Subjective Subjective Date of Service: 12/12/23 Reason For Visit: depression, si Subjective Notes: Conditional Voluntary Healthcare Proxy: No Guardianship: No Medical Problems Affecting Mental Status: No Interim History: Pt reports not feeling well with HTN, chest pain, sx of TTP which he has had twice. EKG WNL, Labs WNL. ? adverse response to Olanzapine initiated 12/10. Reports feeling tired, light headed, stomach feeling tight but able to eat. Medication Compliance: Yes Side effects from medications: Yes (???) Attending Groups: No Review of Systems Acute medical concerns: Yes as noted Medical Review of Systems: unchanged Review of Systems Review of Systems as noted Mental Status Exam Mental Status Exam Patient Appearance: Appropriate Patient Orientation: Person, Place, Time and Situation Level of Consciousness: Alert Patient Behavior: Appropriate, Talkative, Cooperative and Poor Eye Contact Mood Description: Depressed Affect Description: Flat Patient Cognition Impaired: No Ability to Follow Directions: Good Speech Pattern: Spontaneous Speech Memory Description: Intact Hallucinations: None Delusions: Not Present Perceptual Disturbances: Depersonalization and Derealization Thought Process: Rumination Thought Content: positive for Perseveration and positive for Suicidal Ideation Depressive Symptoms: Insomnia, Difficulty Sleeping, Feelings of Worthlessness, Isolating-Friends/Family, Thoughts of /Suicide, Low Self Esteem and Loss of Energy Judgement: Fair Diagnostics Vital Signs (24Hr): Vital Signs - 24 hr 12/12/23 08:00 Temperature 98.3 F Pulse Rate 78 Respiratory Rate 16 Blood Pressure 137/67 Pulse Oximetry 94 Oxygen Delivery Method Room Air BMI result Body Mass Index 35.6 Labs 12/12/23 14:02 12/12/23 14:02 Labs: Laboratory Results - last 48 hr 12/10/23 12/12/23 Unknown 14:02 WBC 10.0 RBC 5.24 Hgb 14.4 Hct 44.5 MCV 84.9 MCH 27.5 MCHC 32.4 RDW 15.1 Plt Count 291 MPV 11.5 Immature Gran % (Auto) 0.3 Neut % (Auto) 59.7 Lymph % (Auto) 28.3 [place] % (Auto) 9.4 Eos % (Auto) 1.9 Baso % (Auto) 0.4 Lymph # (Auto) 2.8 [place] # (Auto) 0.9 Eos # (Auto) 0.2 Baso # (Auto) 0.0 Abs Immat Gran (auto) 0.03 Absolute Neuts (auto) 6.0 Absolute Nucleated RBC 0.000 Nucleated RBC % (auto) 0.0 Sodium 143 Potassium 4.7 D Chloride 106 Carbon Dioxide 26 Anion Gap 16 BUN 21 H Creatinine 1.07 Estim Creat Clear Calc 118.2 Estimated GFR > 60 Random Glucose 102 Calcium 9.6 Total Bilirubin 0.2 AST 16 ALT 17 Alkaline Phosphatase 89 Total Protein 7.6 Albumin 3.8 Influenza Type A (PCR) NEGATIVE Influenza Type B (PCR) NEGATIVE RSV RNA Qual (PCR) NEGATIVE SARS-CoV-2 RNA (RT-PCR) NEGATIVE Medications Medications Current Medications Acetaminophen (Acetaminophen 325 Mg Tablet) 650 mg PO Q6H PRN PRN Reason: Headache/Pain Mild Scale (1-3) Last Admin: 12/10/23 13:12 Dose: 650 mg Al Hydroxide/Mg Hydroxide (Magnesium Hydrox/Alum Hydrox 30 Ml Oral.Susp) 30 ml PO Q6H PRN PRN Reason: Heartburn/Nausea Clonidine HCl (Clonidine Hcl 0.1 Mg Tablet) 0.1 mg PO Q4H PRN; Protocol PRN Reason: moderate anxiety Escitalopram Oxalate (Escitalopram Oxalate 10 Mg Tablet) 10 mg PO DAILY [facility] Last Admin: 12/12/23 08:59 Dose: 10 mg Hydroxyzine HCl (Hydroxyzine Hcl 25 Mg Tablet) 25 mg PO Q6H PRN PRN Reason: Anxiety Magnesium Hydroxide (Milk Of Magnesia 30 Ml Oral.Susp) 30 ml PO DAILY PRN PRN Reason: Constipation Nicotine (Nicotine 21 Mg Patch.Td24) 21 mg TRANSDERMA DAILY PRN PRN Reason: smoking cessation Nicotine Polacrilex (Nicotine Polacrilex 2 Mg Gum) 4 mg BUCCAL Q2H PRN PRN Reason: Nicotine Cravings Last Admin: 12/11/23 21:20 Dose: 4 mg Trazodone HCl (Trazodone Hcl 50 Mg Tablet) 50 mg PO BEDTIME PRN PRN Reason: Insomnia Allergies Allergies Allergy/AdvReac Type Severity Reaction Status Date / Time No Known Allergies Allergy Verified 12/04/23 21:14 Assessment & Plan Assessment & Plan (1) Major depressive disorder, recurrent severe without psychotic features: Status: Acute Code(s): F33.2 - Major depressive disorder, recurrent severe without psychotic features (2) Suicidal ideation: Status: Acute Code(s): R45.851 - Suicidal ideations Plan Hospital course: 12/06 Patient says he is doing okay, still quite depressed; discussed that he has had really no history of medication trials, the few things he tried he quit after a week but that he is now really eager to not feel depressed anymore. Said he slept well with trazodone. Tolerating Lexapro and agrees to increase dose. 12/07 continue current treatment plan 12/09/23 DC Trazodone scheduled dose. Continue 50 mg HS prn Mirtazapine 15 mg HS 12/10/23 Decrease Mirtazapine to 7.5 mg hs 12/10: Discontinue Remeron Olanzapine 5 mg bid 12/11 Discontinue Olanzapine-pt ?experiencing SE Plan: CV Q 15 minute checks Increased lexapro 10 mg daily labs: folate, TSH, T4 A1C, Magnesium level, B12 level. Increase Trazodone to 100 mg HS with 50 mg HS prn consider lithium for chronic SI referral to trauma therapist and out pt psychiatry Encourage milieu involvement Patient educated on: medication risk/benefits Informed Consent: understands Reason for continued inpatient stay Substantial Risk for: rapid decompensation Time Spent With Patient Time: Total time managing care of this patient today ____ minutes.
[2023-12-12] MEDS: Nicotine Polacrilex 2 MG GUM 4 MG BUCCAL ×2 (18:41→21:09)
[2023-12-12 20:00] VITALS: BP 140/78; PULSE 82; RESP 17; TEMP 37; O2SAT 97
[2023-12-13 08:00] VITALS: BP 114/64; PULSE 74; RESP 16; TEMP 36.9; O2SAT 97
[2023-12-13] MEDS: Escitalopram Oxalate 10 MG TABLET PO (08:59)
[2023-12-13] MEDS: Nicotine Polacrilex 2 MG GUM 4 MG BUCCAL ×2 (13:00→21:20)
--- NOTE | 2023-12-13 17:54 | P.PNPSI_ITS ---
Subjective Subjective Date of Service: 12/13/23 Reason For Visit: depression, si Subjective Notes: Conditional Voluntary Healthcare Proxy: No Guardianship: No Medical Problems Affecting Mental Status: No Interim History: Pt reports feeling better today. No physcial sx. Full review of diagnostics Message left for [facility], Dr. Rubio, to discuss pt's hx of TTP and what meds he was taking when this was diagnosed. [phone]. Discussed the impact of trauma on each aspect of his life. Medication Compliance: Yes Side effects from medications: No Attending Groups: Yes Review of Systems Acute medical concerns: No Medical Review of Systems: unchanged Review of Systems Review of Systems Yes all other systems are reviewed and are negative Mental Status Exam Mental Status Exam Patient Appearance: Appropriate Patient Orientation: Person, Place, Time and Situation Level of Consciousness: Alert Patient Behavior: Appropriate, Talkative, Cooperative and Poor Eye Contact Mood Description: Depressed Affect Description: Flat Patient Cognition Impaired: No Ability to Follow Directions: Good Speech Pattern: Spontaneous Speech Memory Description: Intact Hallucinations: None Delusions: Not Present Perceptual Disturbances: Depersonalization and Derealization Thought Process: Rumination Thought Content: positive for Perseveration and positive for Suicidal Ideation Depressive Symptoms: Insomnia, Difficulty Sleeping, Feelings of Worthlessness, Isolating-Friends/Family, Thoughts of /Suicide, Low Self Esteem and Loss of Energy Judgement: Fair Diagnostics Vital Signs (24Hr): Vital Signs - 24 hr 12/12/23 20:00 12/13/23 08:00 Temperature 98.6 F 98.4 F Pulse Rate 82 74 Respiratory Rate 17 16 Blood Pressure 140/78 H 114/64 Pulse Oximetry 97 97 Oxygen Delivery Method Room Air Room Air BMI result Body Mass Index 35.6 Labs 12/12/23 14:02 12/12/23 14:02 Labs: Laboratory Results - last 48 hr 12/12/23 14:02 WBC 10.0 RBC 5.24 Hgb 14.4 Hct 44.5 MCV 84.9 MCH 27.5 MCHC 32.4 RDW 15.1 Plt Count 291 MPV 11.5 Immature Gran % (Auto) 0.3 Neut % (Auto) 59.7 Lymph % (Auto) 28.3 [place] % (Auto) 9.4 Eos % (Auto) 1.9 Baso % (Auto) 0.4 Lymph # (Auto) 2.8 [place] # (Auto) 0.9 Eos # (Auto) 0.2 Baso # (Auto) 0.0 Abs Immat Gran (auto) 0.03 Absolute Neuts (auto) 6.0 Absolute Nucleated RBC 0.000 Nucleated RBC % (auto) 0.0 Sodium 143 Potassium 4.7 D Chloride 106 Carbon Dioxide 26 Anion Gap 16 BUN 21 H Creatinine 1.07 Estim Creat Clear Calc 118.2 Estimated GFR > 60 Random Glucose 102 Calcium 9.6 Total Bilirubin 0.2 AST 16 ALT 17 Alkaline Phosphatase 89 Total Protein 7.6 Albumin 3.8 Medications Medications Current Medications Acetaminophen (Acetaminophen 325 Mg Tablet) 650 mg PO Q6H PRN PRN Reason: Headache/Pain Mild Scale (1-3) Last Admin: 12/10/23 13:12 Dose: 650 mg Al Hydroxide/Mg Hydroxide (Magnesium Hydrox/Alum Hydrox 30 Ml Oral.Susp) 30 ml PO Q6H PRN PRN Reason: Heartburn/Nausea Clonidine HCl (Clonidine Hcl 0.1 Mg Tablet) 0.1 mg PO Q4H PRN; Protocol PRN Reason: moderate anxiety Escitalopram Oxalate (Escitalopram Oxalate 10 Mg Tablet) 10 mg PO DAILY [facility] Last Admin: 12/13/23 08:59 Dose: 10 mg Hydroxyzine HCl (Hydroxyzine Hcl 25 Mg Tablet) 25 mg PO Q6H PRN PRN Reason: Anxiety Magnesium Hydroxide (Milk Of Magnesia 30 Ml Oral.Susp) 30 ml PO DAILY PRN PRN Reason: Constipation Nicotine (Nicotine 21 Mg Patch.Td24) 21 mg TRANSDERMA DAILY PRN PRN Reason: smoking cessation Nicotine Polacrilex (Nicotine Polacrilex 2 Mg Gum) 4 mg BUCCAL Q2H PRN PRN Reason: Nicotine Cravings Last Admin: 12/13/23 13:00 Dose: 4 mg Trazodone HCl (Trazodone Hcl 50 Mg Tablet) 50 mg PO BEDTIME PRN PRN Reason: Insomnia Allergies Allergies Allergy/AdvReac Type Severity Reaction Status Date / Time No Known Allergies Allergy Verified 12/04/23 21:14 Assessment & Plan Assessment & Plan (1) Major depressive disorder, recurrent severe without psychotic features: Status: Acute Code(s): F33.2 - Major depressive disorder, recurrent severe without psychotic features (2) Suicidal ideation: Status: Acute Code(s): R45.851 - Suicidal ideations Plan Hospital course: 12/06 Patient says he is doing okay, still quite depressed; discussed that he has had really no history of medication trials, the few things he tried he quit after a week but that he is now really eager to not feel depressed anymore. Said he slept well with trazodone. Tolerating Lexapro and agrees to increase dose. 12/07 continue current treatment plan 12/09/23 DC Trazodone scheduled dose. Continue 50 mg HS prn Mirtazapine 15 mg HS 12/10/23 Decrease Mirtazapine to 7.5 mg hs 12/10: Discontinue Remeron Olanzapine 5 mg bid 12/11 Discontinue Olanzapine-pt ?experiencing SE 12/12 No changes today. Call to [facility], message left to learn what psychotropic medications pt was taking when TTP developed. Plan: CV Q 15 minute checks Increased lexapro 10 mg daily labs: folate, TSH, T4 A1C, Magnesium level, B12 level. Increase Trazodone to 100 mg HS with 50 mg HS prn consider lithium for chronic SI referral to trauma therapist and out pt psychiatry Encourage milieu involvement Informed Consent: understands Reason for continued inpatient stay Substantial Risk for: harm to self and rapid decompensation Time Spent With Patient Time: Total time managing care of this patient today ____ minutes.
[2023-12-13 20:00] VITALS: BP 152/98; PULSE 79; TEMP 36.6; O2SAT 97
[2023-12-14 08:00] VITALS: BP 141/88; PULSE 78; RESP 16; TEMP 36.9; O2SAT 96
--- NOTE | 2023-12-14 08:01 | P.PNPSI_ITS ---
Subjective Subjective Date of Service: 12/14/23 Reason For Visit: depression, si Subjective Notes: Conditional Voluntary Interim History: Pt reports feeling better today. No physcial sx. Pt still depressed and at times withdrawn; did play cards with peer today. pt denies current SI or HI Medication Compliance: Yes Side effects from medications: No Attending Groups: Intermittent Review of Systems Review of Systems as noted Yes all other systems are reviewed and are negative Musculoskeletal: Reports myalgias Mental Status Exam Mental Status Exam Narrative: Pt is alert and oriented; behavior is isolative but cooperative on approach, calm; patient is not in distress; dressed in casual attire with adequate hygiene; mood is described as depressed and affect congruent, downcast; eye contact minimal; Speech is a little slowed, a little soft; normal prosody; not pressured; psychomotor retardation present; thought process is organized and goal directed; Thought content is on tx, trauma history; otherwise pertinent to relevant topics and without any delusional content, paranoid ideations or grandiosity; denies any SI/HI. There is no evidence of perceptual disturbance. Patients insight and judgment impaired Patient Appearance: Appropriate Patient Orientation: Person, Place, Time and Situation Level of Consciousness: Alert Patient Behavior: Appropriate, Talkative, Cooperative and Poor Eye Contact Mood Description: Depressed Affect Description: Flat Patient Cognition Impaired: No Ability to Follow Directions: Good Speech Pattern: Spontaneous Speech Memory Description: Intact Diagnostics Vital Signs (24Hr): Vital Signs - 24 hr 12/13/23 20:00 Temperature 97.8 F Pulse Rate 79 Blood Pressure 152/98 H Pulse Oximetry 97 Oxygen Delivery Method Room Air BMI result Body Mass Index 35.6 Labs 12/12/23 14:02 12/12/23 14:02 Labs: Laboratory Results - last 48 hr 12/12/23 14:02 WBC 10.0 RBC 5.24 Hgb 14.4 Hct 44.5 MCV 84.9 MCH 27.5 MCHC 32.4 RDW 15.1 Plt Count 291 MPV 11.5 Immature Gran % (Auto) 0.3 Neut % (Auto) 59.7 Lymph % (Auto) 28.3 [place] % (Auto) 9.4 Eos % (Auto) 1.9 Baso % (Auto) 0.4 Lymph # (Auto) 2.8 [place] # (Auto) 0.9 Eos # (Auto) 0.2 Baso # (Auto) 0.0 Abs Immat Gran (auto) 0.03 Absolute Neuts (auto) 6.0 Absolute Nucleated RBC 0.000 Nucleated RBC % (auto) 0.0 Sodium 143 Potassium 4.7 D Chloride 106 Carbon Dioxide 26 Anion Gap 16 BUN 21 H Creatinine 1.07 Estim Creat Clear Calc 118.2 Estimated GFR > 60 Random Glucose 102 Calcium 9.6 Total Bilirubin 0.2 AST 16 ALT 17 Alkaline Phosphatase 89 Total Protein 7.6 Albumin 3.8 Medications Medications Current Medications Acetaminophen (Acetaminophen 325 Mg Tablet) 650 mg PO Q6H PRN PRN Reason: Headache/Pain Mild Scale (1-3) Last Admin: 12/10/23 13:12 Dose: 650 mg Al Hydroxide/Mg Hydroxide (Magnesium Hydrox/Alum Hydrox 30 Ml Oral.Susp) 30 ml PO Q6H PRN PRN Reason: Heartburn/Nausea Clonidine HCl (Clonidine Hcl 0.1 Mg Tablet) 0.1 mg PO Q4H PRN; Protocol PRN Reason: moderate anxiety Escitalopram Oxalate (Escitalopram Oxalate 10 Mg Tablet) 10 mg PO DAILY [facility] Last Admin: 12/13/23 08:59 Dose: 10 mg Hydroxyzine HCl (Hydroxyzine Hcl 25 Mg Tablet) 25 mg PO Q6H PRN PRN Reason: Anxiety Magnesium Hydroxide (Milk Of Magnesia 30 Ml Oral.Susp) 30 ml PO DAILY PRN PRN Reason: Constipation Nicotine (Nicotine 21 Mg Patch.Td24) 21 mg TRANSDERMA DAILY PRN PRN Reason: smoking cessation Nicotine Polacrilex (Nicotine Polacrilex 2 Mg Gum) 4 mg BUCCAL Q2H PRN PRN Reason: Nicotine Cravings Last Admin: 12/13/23 21:20 Dose: 4 mg Trazodone HCl (Trazodone Hcl 50 Mg Tablet) 50 mg PO BEDTIME PRN PRN Reason: Insomnia Allergies Allergies Allergy/AdvReac Type Severity Reaction Status Date / Time No Known Allergies Allergy Verified 12/04/23 21:14 Assessment & Plan Assessment & Plan (1) Major depressive disorder, recurrent severe without psychotic features: Status: Acute Code(s): F33.2 - Major depressive disorder, recurrent severe without psychotic features (2) Suicidal ideation: Status: Acute Code(s): R45.851 - Suicidal ideations Plan Hospital course: 12/06 Patient says he is doing okay, still quite depressed; discussed that he has had really no history of medication trials, the few things he tried he quit after a week but that he is now really eager to not feel depressed anymore. Said he slept well with trazodone. Tolerating Lexapro and agrees to increase dose. 12/07 continue current treatment plan 12/09/23 DC Trazodone scheduled dose. Continue 50 mg HS prn Mirtazapine 15 mg HS 12/10/23 Decrease Mirtazapine to 7.5 mg hs 12/10: Discontinue Remeron Olanzapine 5 mg bid 12/11 Discontinue Olanzapine-pt ?experiencing SE 12/12 No changes today. Call to [facility], message left to learn what psychotropic medications pt was taking when TTP developed. 12/13 continue tx plan Plan: CV Q 15 minute checks Increased lexapro 10 mg daily labs: folate, TSH, T4 A1C, Magnesium level, B12 level. Increase Trazodone to 100 mg HS with 50 mg HS prn consider lithium for chronic SI referral to trauma therapist and out pt psychiatry Encourage milieu involvement Reason for continued inpatient stay Substantial Risk for: harm to self and rapid decompensation Time Spent With Patient Time: Total time managing care of this patient today ____ minutes.
[2023-12-14] MEDS: Nicotine Polacrilex 2 MG GUM 4 MG BUCCAL ×3 (09:25→22:37)
[2023-12-14] MEDS: Escitalopram Oxalate 10 MG TABLET PO (09:25)
[2023-12-14 20:00] VITALS: BP 135/80; PULSE 94; TEMP 36.2; O2SAT 94
[2023-12-14] MEDS: traZODone HCL 50 MG TABLET PO (23:20)
[2023-12-15 08:00] VITALS: BP 137/73; PULSE 80; RESP 16; TEMP 36.8; O2SAT 97
[2023-12-15] MEDS: Escitalopram Oxalate 10 MG TABLET PO (09:41)
[2023-12-15] MEDS: Nicotine Polacrilex 2 MG GUM 4 MG BUCCAL ×3 (09:41→18:52)
--- NOTE | 2023-12-15 10:23 | P.PNPSI_ITS ---
Subjective Subjective Date of Service: 12/15/23 Reason For Visit: depression, si Interim History: Pt reports feeling better today. He is spending more time in the milieu. No physcial sx. Pt is brighter.pt denies current SI or HI Medication Compliance: Yes Side effects from medications: No Attending Groups: Intermittent Review of Systems Acute medical concerns: No Review of Systems Review of Systems as noted Yes all other systems are reviewed and are negative Musculoskeletal: Reports myalgias Mental Status Exam Mental Status Exam Narrative: Pt is alert and oriented; behavior is less isolative and spendingmore time in group rooms; he is cooperative on approach, calm; patient is not in distress; dressed in casual attire with adequate hygiene; mood is described as depressed and affect congruent, downcast; eye contact minimal; Speech is a little slowed, a little soft; normal prosody; not pressured; psychomotor retardation present; thought process is organized and goal directed; Thought content is on tx, trauma history; otherwise pertinent to relevant topics and without any delusional content, paranoid ideations or grandiosity; denies any SI/HI. There is no evidence of perceptual disturbance. Patients insight and judgment impaired Patient Appearance: Appropriate Patient Orientation: Person, Place, Time and Situation Level of Consciousness: Alert Patient Behavior: Appropriate, Talkative, Cooperative and Poor Eye Contact Mood Description: Depressed Affect Description: Flat Patient Cognition Impaired: No Ability to Follow Directions: Good Speech Pattern: Spontaneous Speech Memory Description: Intact Diagnostics Vital Signs (24Hr): Vital Signs - 24 hr 12/14/23 20:00 Temperature 97.2 F Pulse Rate 94 Blood Pressure 135/80 Pulse Oximetry 94 Oxygen Delivery Method Room Air BMI result Body Mass Index 35.6 Labs 12/12/23 14:02 12/12/23 14:02 Medications Medications Current Medications Acetaminophen (Acetaminophen 325 Mg Tablet) 650 mg PO Q6H PRN PRN Reason: Headache/Pain Mild Scale (1-3) Last Admin: 12/10/23 13:12 Dose: 650 mg Al Hydroxide/Mg Hydroxide (Magnesium Hydrox/Alum Hydrox 30 Ml Oral.Susp) 30 ml PO Q6H PRN PRN Reason: Heartburn/Nausea Clonidine HCl (Clonidine Hcl 0.1 Mg Tablet) 0.1 mg PO Q4H PRN; Protocol PRN Reason: moderate anxiety Escitalopram Oxalate (Escitalopram Oxalate 10 Mg Tablet) 10 mg PO DAILY [facility] Last Admin: 12/15/23 09:41 Dose: 10 mg Hydroxyzine HCl (Hydroxyzine Hcl 25 Mg Tablet) 25 mg PO Q6H PRN PRN Reason: Anxiety Magnesium Hydroxide (Milk Of Magnesia 30 Ml Oral.Susp) 30 ml PO DAILY PRN PRN Reason: Constipation Nicotine (Nicotine 21 Mg Patch.Td24) 21 mg TRANSDERMA DAILY PRN PRN Reason: smoking cessation Nicotine Polacrilex (Nicotine Polacrilex 2 Mg Gum) 4 mg BUCCAL Q2H PRN PRN Reason: Nicotine Cravings Last Admin: 12/15/23 09:41 Dose: 4 mg Trazodone HCl (Trazodone Hcl 50 Mg Tablet) 50 mg PO BEDTIME PRN PRN Reason: Insomnia Last Admin: 12/14/23 23:20 Dose: 50 mg Allergies Allergies Allergy/AdvReac Type Severity Reaction Status Date / Time No Known Allergies Allergy Verified 12/04/23 21:14 Assessment & Plan Assessment & Plan (1) Major depressive disorder, recurrent severe without psychotic features: Status: Acute Code(s): F33.2 - Major depressive disorder, recurrent severe without psychotic features (2) Suicidal ideation: Status: Acute Code(s): R45.851 - Suicidal ideations Plan Hospital course: 12/06 Patient says he is doing okay, still quite depressed; discussed that he has had really no history of medication trials, the few things he tried he quit after a week but that he is now really eager to not feel depressed anymore. Said he slept well with trazodone. Tolerating Lexapro and agrees to increase dose. 12/07 continue current treatment plan 12/09/23 DC Trazodone scheduled dose. Continue 50 mg HS prn Mirtazapine 15 mg HS 12/10/23 Decrease Mirtazapine to 7.5 mg hs 12/10: Discontinue Remeron Olanzapine 5 mg bid 12/11 Discontinue Olanzapine-pt ?experiencing SE 12/12 No changes today. 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 12/13 continue tx plan 12/14 continue tx plan Plan: CV Q 15 minute checks Increased lexapro 10 mg daily labs: folate, TSH, T4 A1C, Magnesium level, B12 level. Increase Trazodone to 100 mg HS with 50 mg HS prn consider lithium for chronic SI referral to trauma therapist and out pt psychiatry Encourage milieu involvement Reason for continued inpatient stay Substantial Risk for: harm to self and inability to function Time Spent With Patient Time: Total time managing care of this patient today ____ minutes.
[2023-12-15 20:00] VITALS: BP 139/84; PULSE 74; TEMP 36.8; O2SAT 96
[2023-12-15] MEDS: traZODone HCL 50 MG TABLET PO (23:03)
[2023-12-16 08:00] VITALS: BP 126/80; PULSE 78; RESP 16; TEMP 36.8; O2SAT 96
[2023-12-16] MEDS: Escitalopram Oxalate 10 MG TABLET PO (09:32)
[2023-12-16] MEDS: Nicotine Polacrilex 2 MG GUM 4 MG BUCCAL ×3 (09:32→21:12)
--- NOTE | 2023-12-16 14:54 | HO.PSYCHPN ---
Subjective Subjective Date of Service: 12/16/23 Reason For Visit: depression, si Interim History: Pt reports feeling better today. He is spending more time in the milieu. Reports not sleeping well last night would like increase in trazodone; No physcial sx. Pt is brighter.pt denies current SI or HI Medication Compliance: Yes Side effects from medications: No Attending Groups: Intermittent Review of Systems Review of Systems as noted Yes all other systems are reviewed and are negative Musculoskeletal: Reports myalgias Mental Status Exam Mental Status Exam Narrative: Pt is alert and oriented; behavior is less isolative and spendingmore time in group rooms; he is cooperative on approach, calm; patient is not in distress; dressed in casual attire with adequate hygiene; mood is described as depressed and affect congruent, downcast; eye contact minimal; Speech is a little slowed, a little soft; normal prosody; not pressured; psychomotor retardation present; thought process is organized and goal directed; Thought content is on tx, trauma history; otherwise pertinent to relevant topics and without any delusional content, paranoid ideations or grandiosity; denies any SI/HI. There is no evidence of perceptual disturbance. Patients insight and judgment impaired Patient Appearance: Appropriate Patient Orientation: Person, Place, Time and Situation Level of Consciousness: Alert Patient Behavior: Appropriate, Talkative, Cooperative and Poor Eye Contact Mood Description: Depressed Affect Description: Flat Patient Cognition Impaired: No Ability to Follow Directions: Good Speech Pattern: Spontaneous Speech Memory Description: Intact Diagnostics Vital Signs (24Hr): Vital Signs - 24 hr 12/15/23 20:00 12/16/23 08:00 Temperature 98.2 F 98.3 F Pulse Rate 74 78 Respiratory Rate 16 Blood Pressure 139/84 126/80 Pulse Oximetry 96 96 Oxygen Delivery Method Room Air Room Air BMI result Body Mass Index 35.6 Labs 12/12/23 14:02 12/12/23 14:02 Medications Medications Current Medications Acetaminophen (Acetaminophen 325 Mg Tablet) 650 mg PO Q6H PRN PRN Reason: Headache/Pain Mild Scale (1-3) Last Admin: 12/10/23 13:12 Dose: 650 mg Al Hydroxide/Mg Hydroxide (Magnesium Hydrox/Alum Hydrox 30 Ml Oral.Susp) 30 ml PO Q6H PRN PRN Reason: Heartburn/Nausea Clonidine HCl (Clonidine Hcl 0.1 Mg Tablet) 0.1 mg PO Q4H PRN; Protocol PRN Reason: moderate anxiety Escitalopram Oxalate (Escitalopram Oxalate 10 Mg Tablet) 10 mg PO DAILY [facility]ENN[facility] Last Admin: 12/16/23 09:32 Dose: 10 mg Hydroxyzine HCl (Hydroxyzine Hcl 25 Mg Tablet) 25 mg PO Q6H PRN PRN Reason: Anxiety Magnesium Hydroxide (Milk Of Magnesia 30 Ml Oral.Susp) 30 ml PO DAILY PRN PRN Reason: Constipation Nicotine (Nicotine 21 Mg Patch.Td24) 21 mg TRANSDERMA DAILY PRN PRN Reason: smoking cessation Nicotine Polacrilex (Nicotine Polacrilex 2 Mg Gum) 4 mg BUCCAL Q2H PRN PRN Reason: Nicotine Cravings Last Admin: 12/16/23 14:40 Dose: 4 mg Trazodone HCl (Trazodone Hcl 100 Mg Tablet) 100 mg PO BEDTIME PRN PRN Reason: Insomnia Allergies Allergies Allergy/AdvReac Type Severity Reaction Status Date / Time No Known Allergies Allergy Verified 12/04/23 21:14 Assessment & Plan Assessment & Plan (1) Major depressive disorder, recurrent severe without psychotic features: Status: Acute Code(s): F33.2 - Major depressive disorder, recurrent severe without psychotic features (2) Suicidal ideation: Status: Acute Code(s): R45.851 - Suicidal ideations Plan Hospital course: 12/06 Patient says he is doing okay, still quite depressed; discussed that he has had really no history of medication trials, the few things he tried he quit after a week but that he is now really eager to not feel depressed anymore. Said he slept well with trazodone. Tolerating Lexapro and agrees to increase dose. 12/07 continue current treatment plan 12/09/23 DC Trazodone scheduled dose. Continue 50 mg HS prn Mirtazapine 15 mg HS 12/10/23 Decrease Mirtazapine to 7.5 mg hs 12/10: Discontinue Remeron Olanzapine 5 mg bid 12/11 Discontinue Olanzapine-pt ?experiencing SE 12/12 No changes today. 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 12/13 continue tx plan 12/14 continue tx plan 12/15 increase trazodone to 100mg at hs Plan: CV Q 15 minute checks Increased lexapro 10 mg daily labs: folate, TSH, T4 A1C, Magnesium level, B12 level. Increase Trazodone to 100 mg HS with 50 mg HS prn consider lithium for chronic SI referral to trauma therapist and out pt psychiatry Encourage milieu involvement Reason for continued inpatient stay Substantial Risk for: harm to self and inability to function Time Spent With Patient Time: Total time managing care of this patient today ____ minutes.
[2023-12-16] MEDS: Magnesium Hydrox/Alum Hydrox 30 ML ORAL.SUSP PO (19:23)
[2023-12-16 20:00] VITALS: BP 148/84; PULSE 97; RESP 18; TEMP 35.9; O2SAT 96
[2023-12-16] MEDS: hydrOXYzine HCL 25 MG TABLET PO (21:35)
[2023-12-16] MEDS: Acetaminophen 325 MG TABLET 650 MG PO (21:35)
[2023-12-16] MEDS: traZODone HCL 100 MG TABLET PO (22:22)
[2023-12-17 08:00] VITALS: BP 126/82; PULSE 75; RESP 16; TEMP 36.4; O2SAT 96
[2023-12-17] MEDS: Escitalopram Oxalate 10 MG TABLET PO (09:14)
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
[2023-12-17] MEDS: Nicotine Polacrilex 2 MG GUM 4 MG BUCCAL ×2 (10:30→13:12)
[2023-12-17] MEDS: Nicotine Polacrilex Lozenge 2 MG LOZENGE BUCCAL ×5 (14:20→23:06)
--- NOTE | 2023-12-17 19:10 | PM.EVENT ---
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 The patient reports to me that several days ago, had multiple bouts of forceful sneezing/cough with associated pleuritic chest pain. He denies any symptoms today. Denies any fevers, chills, sinus pain, congestion, sore throat, ongoing cough, shortness of breath, chest pressure. Given concerns for chest pain at that time, EKG was ordered which showed NSR, rate [address]/T-wave abnormalities. Earlier today, chest x-ray ordered was negative for any acute cardiopulmonary abnormality an x-ray of the sinuses showed partial opacification of the left maxillary sinus. No air-fluid levels noted. Exam: Pt in no acute distress, respirations even and unlabored. Lungs are clear to auscultation bilaterally. Heart is regular rate and rhythm. There is no sinus tenderness to palpation bilaterally. No cervical adenopathy. A/P: Symptoms most likely related to allergic or viral rhinitis. No concerns for bacterial sinusitis at this time. Imaging unremarkable overall. Opacification of the left sinus is likely related to inflammation/congestion and is not indicative of a bacterial infection. Can check viral respiratory panel which is pending. If positive, would proceed with symptomatic management. Would also recommend Claritin on a daily basis as well as saline nasal rinses. Patient overall is asymptomatic and no further intervention/imaging is recommended at this time. Outpt follow up if symptoms persist Thank you for allowing me to participate in this consult. Signing off at this time. Please do not hesitate to call for further questions or for any acute medical concerns. Time Spent With Patient Time: Total time managing care of this patient today ____ minutes.
[2023-12-17 19:52] VITALS: BP 145/94; PULSE 90; RESP 16; TEMP 36.4; O2SAT 96
[2023-12-17] MEDS: Sodium Chloride 0.65 % Nasal 44 ML SPRBTL 1 SPRAY NOSTRIL-B (21:05)
[2023-12-17] MEDS: QUEtiapine Fumarate 25 MG TABLET PO (23:05)
[2023-12-17] MEDS: cloNIDine HCL 0.1 MG TABLET PO (23:05)
[2023-12-18 08:00] VITALS: BP 125/77; PULSE 70; TEMP 36.8; O2SAT 96
[2023-12-18] MEDS: Loratadine 10 MG TABLET PO (08:48)
[2023-12-18] MEDS: Escitalopram Oxalate 10 MG TABLET PO (08:48)
[2023-12-18] MEDS: Nicotine Polacrilex Lozenge 2 MG LOZENGE BUCCAL ×5 (08:51→22:23)
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
[2023-12-18 10:52] LABS: Adenovirus PCR Not Detected (Not Detect.); Bordetella parapertussis PCR Not Detected (Not Detect.); Bordetella pertussis PCR Not Detected (Not Detect.); Chlamydia pneumoniae PCR Not Detected (Not Detect.); Coronavirus 229E PCR Not Detected (Not Detect.); Coronavirus HKU1 PCR Not Detected (Not Detect.); Coronavirus NL63 PCR Not Detected (Not Detect.); Coronavirus OC43 PCR Not Detected (Not Detect.); Human metapneumovirus PCR Not Detected (Not Detect.); Influenza A PCR Not Detected (Not Detect.); Influenza B PCR Not Detected (Not Detect.); Mycoplasma pneumoniae PCR Not Detected (Not Detect.); Parainfluenza 1 PCR Not Detected (Not Detect.); Parainfluenza 2 PCR Not Detected (Not Detect.); Parainfluenza 3 PCR Not Detected (Not Detect.); Parainfluenza 4 PCR Not Detected (Not Detect.); RSV PCR Not Detected (Not Detect.); Rhino/Enterovirus PCR Not Detected (Not Detect.)
[2023-12-18 11:27] LABS: SARS-CoV-2 PCR Not Detected (Not Detect.)
[2023-12-18 20:00] VITALS: BP 130/79; PULSE 80; RESP 16; TEMP 36.6; O2SAT 95
[2023-12-18] MEDS: QUEtiapine Fumarate 50 MG TABLET PO (22:23)
[2023-12-19] MEDS: Nicotine Polacrilex Lozenge 2 MG LOZENGE BUCCAL ×3 (06:21→22:26)
[2023-12-19 08:00] VITALS: BP 132/65; PULSE 74; RESP 16; TEMP 36.9; O2SAT 97
[2023-12-19] MEDS: Loratadine 10 MG TABLET PO (09:19)
[2023-12-19] MEDS: Escitalopram Oxalate 10 MG TABLET PO (09:19)
[2023-12-19] MEDS: Nicotine Polacrilex 2 MG GUM 4 MG BUCCAL ×2 (09:20→19:16)
[2023-12-19] MEDS: Magnesium Hydrox/Alum Hydrox 30 ML ORAL.SUSP PO (13:10)
--- NOTE | 2023-12-19 16:12 | HO.PSYCHPN ---
Subjective Subjective Date of Service: 12/19/23 Reason For Visit: depression, si Subjective Notes: Conditional Voluntary Healthcare Proxy: No Guardianship: No Medical Problems Affecting Mental Status: No Interim History: Reports Seroquel to be effective, improved sleep last evening. Reports however GI distress. States diagnosed with ulcer ~6 months ago with [facility]. He did not follow up with a treatment plan or follow up testing. Call to [facility] Gastroenterology [phone]. He did not take medications prescribed by their team for a reasonable time. They will call back with plans recommended. Currently pt reporting severe distress and wanting immediate intervention. Hospitalist consult ordered. Medication Compliance: Yes Side effects from medications: Yes (?) Attending Groups: Intermittent Review of Systems Acute medical concerns: No Medical Review of Systems: unchanged Review of Systems Review of Systems GI Distress and pain. Mental Status Exam Mental Status Exam Patient Appearance: Appropriate Patient Orientation: Person, Place, Time and Situation Level of Consciousness: Alert Patient Behavior: Talkative and Good Eye Contact Mood Description: Depressed Affect Description: Flat Patient Cognition Impaired: No Ability to Follow Directions: Good Speech Pattern: Spontaneous Speech Memory Description: Intact Hallucinations: None Delusions: Not Present Perceptual Disturbances: Depersonalization and Derealization Thought Process: Rumination Thought Content: positive for Perseveration Depressive Symptoms: Thoughts of /Suicide Judgement: Fair Diagnostics Vital Signs (24Hr): Vital Signs - 24 hr 12/18/23 20:00 12/19/23 08:00 Temperature 97.8 F 98.4 F Pulse Rate 80 74 Respiratory Rate 16 16 Blood Pressure 130/79 132/65 Pulse Oximetry 95 97 Oxygen Delivery Method Room Air BMI result Body Mass Index 35.6 Labs 12/12/23 14:02 12/12/23 14:02 Labs: Laboratory Results - last 48 hr 12/17/23 18:21 Respiratory Panel March See Note Adenovirus (Rapid PCR) Not Detected B.pert (TEM-PCR) Not Detected B.parapertussis DNA PCR Not Detected C. pneumoniae DNA (PCR) Not Detected Coronavirus OC43 (PCR) Not Detected Coronavirus HKU1 (PCR) Not Detected Coronavirus 229E (PCR) Not Detected Coronavirus NL63 (PCR) Not Detected Human Metapneumovir PCR Not Detected Influenza A (RT-PCR) Not Detected Influenza B (RT-PCR) Not Detected M. pneumoniae (PCR) Not Detected Parainfluenza 1 (PCR) Not Detected Parainfluenza 2 (PCR) Not Detected Parainfluenza 3 (PCR) Not Detected Parainfluenza 4 (PCR) Not Detected RSV (PCR) Not Detected Entero/Rhino (PCR) Not Detected SARS-CoV-2 RNA (RT-PCR) Not Detected Imaging Radiology Impressions: ITS Impressions Chest X-Ray 12/17/23 13:50 IMPRESSION: * Clear lungs. Sinuses X-Ray 12/17/23 13:50 IMPRESSION: Partial opacification of the left maxillary sinus, which could be better evaluated with a CT sinuses or ENT evaluation if warranted clinically. Medications Medications Current Medications Acetaminophen (Acetaminophen 325 Mg Tablet) 650 mg PO Q6H PRN PRN Reason: Headache/Pain Mild Scale (1-3) Last Admin: 12/16/23 21:35 Dose: 650 mg Al Hydroxide/Mg Hydroxide (Magnesium Hydrox/Alum Hydrox 30 Ml Oral.Susp) 30 ml PO Q6H PRN PRN Reason: Heartburn/Nausea Last Admin: 12/19/23 13:10 Dose: 30 ml Clonidine HCl (Clonidine Hcl 0.1 Mg Tablet) 0.1 mg PO Q4H PRN; Protocol PRN Reason: moderate anxiety Last Admin: 12/17/23 23:05 Dose: 0.1 mg Escitalopram Oxalate (Escitalopram Oxalate 10 Mg Tablet) 10 mg PO DAILY [facility] Last Admin: 12/19/23 09:19 Dose: 10 mg Hydroxyzine HCl (Hydroxyzine Hcl 25 Mg Tablet) 25 mg PO Q6H PRN PRN Reason: Anxiety Last Admin: 12/16/23 21:35 Dose: 25 mg Loratadine (Loratadine 10 Mg Tablet) 10 mg PO DAILY [facility] Last Admin: 12/19/23 09:19 Dose: 10 mg Magnesium Hydroxide (Milk Of Magnesia 30 Ml Oral.Susp) 30 ml PO DAILY PRN PRN Reason: Constipation Nicotine (Nicotine 21 Mg Patch.Td24) 21 mg TRANSDERMA DAILY PRN PRN Reason: smoking cessation Nicotine Polacrilex (Nicotine Polacrilex 2 Mg Gum) 4 mg BUCCAL Q2H PRN PRN Reason: Nicotine Cravings Last Admin: 12/19/23 09:20 Dose: 4 mg Nicotine Polacrilex (Nicotine Polacrilex Lozenge 2 Mg Lozenge) 2 mg BUCCAL Q2H PRN PRN Reason: Nicotine Cravings Last Admin: 12/19/23 13:57 Dose: 2 mg Quetiapine Fumarate (Quetiapine Fumarate 25 Mg Tablet) 25 mg PO BEDTIME PRN PRN Reason: insomnia Quetiapine Fumarate (Quetiapine Fumarate 50 Mg Tablet) 50 mg PO BEDTIME [facility] Last Admin: 12/18/23 22:23 Dose: 50 mg Sodium Chloride (Sodium Chloride 0.65 % Nasal 44 Ml Sprbtl) 1 spray NOSTRIL-B Q1H PRN PRN Reason: congestion Last Admin: 12/17/23 21:05 Dose: 1 spray Trazodone HCl (Trazodone Hcl 100 Mg Tablet) 100 mg PO BEDTIME PRN PRN Reason: Insomnia Last Admin: 12/16/23 22:22 Dose: 100 mg Allergies Allergies Allergy/AdvReac Type Severity Reaction Status Date / Time No Known Allergies Allergy Verified 12/04/23 21:14 Assessment & Plan Assessment & Plan (1) Major depressive disorder, recurrent severe without psychotic features: Status: Acute Code(s): F33.2 - Major depressive disorder, recurrent severe without psychotic features (2) Suicidal ideation: Status: Acute Code(s): R45.851 - Suicidal ideations Plan Hospital course: 12/06 Patient says he is doing okay, still quite depressed; discussed that he has had really no history of medication trials, the few things he tried he quit after a week but that he is now really eager to not feel depressed anymore. Said he slept well with trazodone. Tolerating Lexapro and agrees to increase dose. 12/07 continue current treatment plan 12/09/23 DC Trazodone scheduled dose. Continue 50 mg HS prn Mirtazapine 15 mg HS 12/10/23 Decrease Mirtazapine to 7.5 mg hs 12/10: Discontinue Remeron Olanzapine 5 mg bid 12/11 Discontinue Olanzapine-pt ?experiencing SE 12/12 No changes today. Call to [facility], message left to learn what psychotropic medications pt was taking when TTP developed. 12/13 continue tx plan 12/14 continue tx plan 12/15 increase trazodone to 100mg at hs 12/16 Seroquel 25 mg HS. MRx1 prn Sinus xrays, chest xray 12/19/23 Hospitalist consult- GI pain, hx of ?ulcer. Pt did not follow up with his treatment plan. Plan: CV Q 15 minute checks Increased lexapro 10 mg daily labs: folate, TSH, T4 A1C, Magnesium level, B12 level. Increase Trazodone to 100 mg HS with 50 mg HS prn consider lithium for chronic SI referral to trauma therapist and out pt psychiatry Encourage milieu involvement Informed Consent: understands Reason for continued inpatient stay Substantial Risk for: rapid decompensation Time Spent With Patient Time: Total time managing care of this patient today ____ minutes.
--- NOTE | 2023-12-19 19:43 | P.EN_ITS ---
Event Note Date of Service: 12/19/23 Event Note: 48-year-old male with history of TTP s/p splenectomy and erosive esophagitis admitted to adult Psychiatry with consult placed hospitalist service for evaluation of GI pain. The patient reports onset of epigastric pain that is nonradiating that started around this morning after eating breakfast. Reports he had Yoruba toast with maple syrup. There is no associated nausea or vomiting. No melena, hematochezia, diarrhea. He is moving his bowels regularly. On review of [facility] records, the patient did undergo EGD in September of 2022 which showed severe erosive esophagitis with large 5 and 3 cm clean based ulcers with negative biopsies for malignancy or H pylori. He was advised to take pantoprazole 40 mg twice daily indefinitely and and Carafate. The patient states he has not been taking either medication but is unable to give a reason why. He was recommended for repeat EGD in 3 months to evaluate for healing but did not follow-up for this. On exam, the patient is in no acute distress. There is mild diffuse abdominal pain greatest in the epigastrium without rebound or guarding. There are positive bowel sounds throughout. Heart rate is regular in rhythm and rate. Lungs clear to auscultation. A/P: -Pain mostly r/t gastritis/erosive esophagitis with medication noncompliance -denies any melena or hematochezia. However will evaluate CBC. Will also check lipase and troponin given epigastric pain. Imaging not indicated at this time. -recommend resuming pantoprazole equivalent-omeprazole 20 mg b.i.d. as well as Carafate slurry q.i.d. a.c. HS -GI consult not recommended at this time. He is recommended to follow-up with [facility] Gastroenterology outpatient for repeat EGD -avoid triggering foods such as spicy, acidic foods, caffeine, dark chocolate, NSAIDs Will continue following for results. Time Spent With Patient Time: Total time managing care of this patient today ____ minutes.
[2023-12-19 20:18] LABS: MANUAL DIFF FLAG NO
[2023-12-19 20:23] LABS: Basophils Absolute Auto 0.1 X10*3/uL (0.0-0.2); Basophils Percent Auto 0.4 % (0-2); Eosinophils Absolute Auto 0.2 X10*3/uL (0.0-0.4); Eosinophils Percent Auto 1.7 % (0-4); Hematocrit 41.6 % (42.0-52.0); Hemoglobin 13.6 g/dl (14.0-18.0); Imm Gran Abs Auto 0.05 X10*3/uL (0.00-0.03); Imm Gran Pct Auto 0.4 % (0.0-0.4); Lymphocytes Absolute Auto 3.3 X10*3/uL (1.2-4.9); Lymphocytes Percent Auto 28.2 % (20-40); Mean Corpuscular HGB Conc 32.7 g/dl (31.0-36.0); Mean Corpuscular Hemoglobin 27.6 pg (27.0-33.0); Mean Corpuscular Volume 84.4 fL (80.0-98.0); Mean Platelet Volume 10.1 fL (9.4-12.4); Monocytes Percent Auto 8.4 % (2-11); Neutrophils Absolute Auto 7.2 x10*3/uL (2.0-8.3); Neutrophils Percent Auto 60.9 % (45-73); Platelet Count 344 X10*3/uL (160-400); Red Blood Count 4.93 X10*6/uL (4.60-5.80); White Blood Count 11.8 X10*3/uL (4.8-10.8)
[2023-12-19 20:32] LABS: Lipase 30 U/L (8-78)
[2023-12-19 20:42] LABS: Troponin-I High Sensitivity 5.7 ng/L (<3.5-35.0)
[2023-12-19 20:50] LABS: Alanine Aminotransferase 22 U/L (0-40); Albumin Level 3.8 g/dL (3.5-5.0); Alkaline Phosphatase 93 U/L (39-117); Aspartate Amino Transferase 20 U/L (5-37); Bilirubin Direct < 0.2 mg/dL (0.0-0.5); Bilirubin Total 0.1 mg/dL (0.0-1.0); Total Protein 7.5 g/dL (6.5-8.0)
[2023-12-19 22:06] VITALS: BP 164/110; PULSE 83; TEMP 37; O2SAT 94
[2023-12-19] MEDS: Omeprazole 20 MG CAPSULE.DR PO (22:17)
[2023-12-19] MEDS: QUEtiapine Fumarate 50 MG TABLET PO (22:17)
[2023-12-19] MEDS: traZODone HCL 100 MG TABLET PO (22:17)
[2023-12-19] MEDS: Sucralfate Oral Suspension 1 GM/10 ML ORAL.SUSP PO (22:26)
[2023-12-20] MEDS: Omeprazole 20 MG CAPSULE.DR PO ×2 (06:30→16:57)
[2023-12-20] MEDS: Sucralfate Oral Suspension 1 GM/10 ML ORAL.SUSP PO ×4 (06:30→21:18)
[2023-12-20 07:59] LABS: MANUAL DIFF FLAG NO
[2023-12-20 08:00] VITALS: BP 130/72; PULSE 74; RESP 16; TEMP 36.8; O2SAT 97
[2023-12-20 08:00] LABS: Basophils Percent Auto 0.3 % (0-2); Eosinophils Absolute Auto 0.2 X10*3/uL (0.0-0.4); Hematocrit 42.3 % (42.0-52.0); Hemoglobin 13.8 g/dl (14.0-18.0); Imm Gran Abs Auto 0.06 X10*3/uL (0.00-0.03); Imm Gran Pct Auto 0.5 % (0.0-0.4); Lymphocytes Absolute Auto 3.1 X10*3/uL (1.2-4.9); Lymphocytes Percent Auto 26.5 % (20-40); Mean Corpuscular HGB Conc 32.6 g/dl (31.0-36.0); Mean Corpuscular Hemoglobin 27.4 pg (27.0-33.0); Mean Corpuscular Volume 84.1 fL (80.0-98.0); Mean Platelet Volume 10.2 fL (9.4-12.4); Monocytes Absolute Auto 0.8 X10*3/uL (0.1-1.2); Neutrophils Absolute Auto 7.5 x10*3/uL (2.0-8.3); Neutrophils Percent Auto 63.7 % (45-73); Platelet Count 344 X10*3/uL (160-400); Red Blood Count 5.03 X10*6/uL (4.60-5.80); Red Cell Distribution Width 14.9 % (11.0-16.0); White Blood Count 11.7 X10*3/uL (4.8-10.8)
[2023-12-20] MEDS: Escitalopram Oxalate 10 MG TABLET PO (09:07)
[2023-12-20] MEDS: Loratadine 10 MG TABLET PO (09:07)
[2023-12-20] MEDS: Nicotine Polacrilex 2 MG GUM 4 MG BUCCAL ×3 (09:36→21:19)
--- NOTE | 2023-12-20 10:25 | HO.PSYCHPN ---
Subjective Subjective Date of Service: 12/20/23 Reason For Visit: depression, si Subjective Notes: Conditional Voluntary Healthcare Proxy: No Guardianship: No Medical Problems Affecting Mental Status: No Interim History: Pt feeling some GI relief. Discussed discharge with pt as he is not participating in the milieu. Tentative 12/23 or 12/24. He agrees and will try to attend more groups. Review of meds. He is ready to increase Seroquel to 75 mg HS and Lexapro to 15 mg daily. Reports sleep and appetite are improving Will plan on [facility] for out pt therapy/medication mgt alliances. Medication Compliance: Yes Side effects from medications: No Attending Groups: No Review of Systems Acute medical concerns: No Medical Review of Systems: unchanged Review of Systems Review of Systems Yes all other systems are reviewed and are negative Mental Status Exam Mental Status Exam Patient Appearance: Appropriate Patient Orientation: Person, Place, Time and Situation Level of Consciousness: Alert Patient Behavior: Talkative and Good Eye Contact Mood Description: Depressed Affect Description: Flat Patient Cognition Impaired: No Ability to Follow Directions: Good Speech Pattern: Spontaneous Speech Memory Description: Intact Hallucinations: None Delusions: Not Present Perceptual Disturbances: Depersonalization and Derealization Thought Process: Rumination Thought Content: positive for Perseveration Depressive Symptoms: Thoughts of /Suicide Judgement: Fair Diagnostics Vital Signs (24Hr): Vital Signs - 24 hr 12/19/23 22:06 12/20/23 08:00 Temperature 98.6 F 98.2 F Pulse Rate 83 74 Respiratory Rate 16 Blood Pressure 164/110 H 130/72 Pulse Oximetry 94 97 Oxygen Delivery Method Room Air Room Air BMI result Body Mass Index 35.6 Labs 12/20/23 07:47 12/12/23 14:02 Labs: Laboratory Results - last 48 hr 12/17/23 12/19/23 12/20/23 18:21 20:12 07:47 WBC 11.8 H 11.7 H RBC 4.93 5.03 Hgb 13.6 L 13.8 L Hct 41.6 L 42.3 MCV 84.4 84.1 MCH 27.6 27.4 MCHC 32.7 32.6 RDW 15.0 14.9 Plt Count 344 344 MPV 10.1 10.2 Immature Gran % (Auto) 0.4 0.5 H Neut % (Auto) 60.9 63.7 Lymph % (Auto) 28.2 26.5 [place] % (Auto) 8.4 7.0 Eos % (Auto) 1.7 2.0 Baso % (Auto) 0.4 0.3 Lymph # (Auto) 3.3 3.1 [place] # (Auto) 1.0 0.8 Eos # (Auto) 0.2 0.2 Baso # (Auto) 0.1 0.0 Abs Immat Gran (auto) 0.05 H 0.06 H Absolute Neuts (auto) 7.2 7.5 Absolute Nucleated RBC 0.000 0.000 Nucleated RBC % (auto) 0.0 0.0 Total Bilirubin 0.1 Direct Bilirubin < 0.2 AST 20 ALT 22 Alkaline Phosphatase 93 Troponin I High Sens 5.7 Total Protein 7.5 Albumin 3.8 Lipase 30 Respiratory Panel March See Note Adenovirus (Rapid PCR) Not Detected B.pert (TEM-PCR) Not Detected B.parapertussis DNA PCR Not Detected C. pneumoniae DNA (PCR) Not Detected Coronavirus OC43 (PCR) Not Detected Coronavirus HKU1 (PCR) Not Detected Coronavirus 229E (PCR) Not Detected Coronavirus NL63 (PCR) Not Detected Human Metapneumovir PCR Not Detected Influenza A (RT-PCR) Not Detected Influenza B (RT-PCR) Not Detected M. pneumoniae (PCR) Not Detected Parainfluenza 1 (PCR) Not Detected Parainfluenza 2 (PCR) Not Detected Parainfluenza 3 (PCR) Not Detected Parainfluenza 4 (PCR) Not Detected RSV (PCR) Not Detected Entero/Rhino (PCR) Not Detected SARS-CoV-2 RNA (RT-PCR) Not Detected Imaging Radiology Impressions: ITS Impressions Chest X-Ray 12/17/23 13:50 IMPRESSION: * Clear lungs. Sinuses X-Ray 12/17/23 13:50 IMPRESSION: Partial opacification of the left maxillary sinus, which could be better evaluated with a CT sinuses or ENT evaluation if warranted clinically. Medications Medications Current Medications Acetaminophen (Acetaminophen 325 Mg Tablet) 650 mg PO Q6H PRN PRN Reason: Headache/Pain Mild Scale (1-3) Last Admin: 12/16/23 21:35 Dose: 650 mg Al Hydroxide/Mg Hydroxide (Magnesium Hydrox/Alum Hydrox 30 Ml Oral.Susp) 30 ml PO Q6H PRN PRN Reason: Heartburn/Nausea Last Admin: 12/19/23 13:10 Dose: 30 ml Clonidine HCl (Clonidine Hcl 0.1 Mg Tablet) 0.1 mg PO Q4H PRN; Protocol PRN Reason: moderate anxiety Last Admin: 12/17/23 23:05 Dose: 0.1 mg Escitalopram Oxalate (Escitalopram Oxalate 10 Mg Tablet) 10 mg PO DAILY [facility] Last Admin: 12/20/23 09:07 Dose: 10 mg Hydroxyzine HCl (Hydroxyzine Hcl 25 Mg Tablet) 25 mg PO Q6H PRN PRN Reason: Anxiety Last Admin: 12/16/23 21:35 Dose: 25 mg Loratadine (Loratadine 10 Mg Tablet) 10 mg PO DAILY [facility] Last Admin: 12/20/23 09:07 Dose: 10 mg Magnesium Hydroxide (Milk Of Magnesia 30 Ml Oral.Susp) 30 ml PO DAILY PRN PRN Reason: Constipation Nicotine (Nicotine 21 Mg Patch.Td24) 21 mg TRANSDERMA DAILY PRN PRN Reason: smoking cessation Nicotine Polacrilex (Nicotine Polacrilex 2 Mg Gum) 4 mg BUCCAL Q2H PRN PRN Reason: Nicotine Cravings Last Admin: 12/20/23 09:36 Dose: 4 mg Nicotine Polacrilex (Nicotine Polacrilex Lozenge 2 Mg Lozenge) 2 mg BUCCAL Q2H PRN PRN Reason: Nicotine Cravings Last Admin: 12/19/23 22:26 Dose: 2 mg Omeprazole (Omeprazole 20 Mg Capsule.Dr) 20 mg PO BID@0630,1630 [facility] Last Admin: 12/20/23 06:30 Dose: 20 mg Quetiapine Fumarate (Quetiapine Fumarate 25 Mg Tablet) 25 mg PO BEDTIME PRN PRN Reason: insomnia Quetiapine Fumarate (Quetiapine Fumarate 50 Mg Tablet) 50 mg PO BEDTIME [facility] Last Admin: 12/19/23 22:17 Dose: 50 mg Sodium Chloride (Sodium Chloride 0.65 % Nasal 44 Ml Sprbtl) 1 spray NOSTRIL-B Q1H PRN PRN Reason: congestion Last Admin: 12/17/23 21:05 Dose: 1 spray Sucralfate (Sucralfate Oral Suspension 1 Gm/10 Ml Oral.Susp) 1 gm PO QIDACHS [facility] Last Admin: 12/20/23 06:30 Dose: 1 gm Trazodone HCl (Trazodone Hcl 100 Mg Tablet) 100 mg PO BEDTIME PRN PRN Reason: Insomnia Last Admin: 12/19/23 22:17 Dose: 100 mg Allergies Allergies Allergy/AdvReac Type Severity Reaction Status Date / Time No Known Allergies Allergy Verified 12/04/23 21:14 Assessment & Plan Assessment & Plan (1) Major depressive disorder, recurrent severe without psychotic features: Status: Acute Code(s): F33.2 - Major depressive disorder, recurrent severe without psychotic features (2) Suicidal ideation: Status: Acute Code(s): R45.851 - Suicidal ideations Plan Hospital course: 12/06 Patient says he is doing okay, still quite depressed; discussed that he has had really no history of medication trials, the few things he tried he quit after a week but that he is now really eager to not feel depressed anymore. Said he slept well with trazodone. Tolerating Lexapro and agrees to increase dose. 12/07 continue current treatment plan 12/09/23 DC Trazodone scheduled dose. Continue 50 mg HS prn Mirtazapine 15 mg HS 12/10/23 Decrease Mirtazapine to 7.5 mg hs 12/10: Discontinue Remeron Olanzapine 5 mg bid 12/11 Discontinue Olanzapine-pt ?experiencing SE 12/12 No changes today. Call to [facility], message left to learn what psychotropic medications pt was taking when TTP developed. 12/13 continue tx plan 12/14 continue tx plan 12/15 increase trazodone to 100mg at hs 12/16 Seroquel 25 mg HS. MRx1 prn Sinus xrays, chest xray 12/19/23 Hospitalist consult- GI pain, hx of ?ulcer. Pt did not follow up with his treatment plan. 12/19: Increase Seroquel to 75 mg HS Increase Lexapro to 15 mg daily. Plan: CV Q 15 minute checks Increased lexapro 10 mg daily labs: folate, TSH, T4 A1C, Magnesium level, B12 level. Increase Trazodone to 100 mg HS with 50 mg HS prn consider lithium for chronic SI referral to trauma therapist and out pt psychiatry Encourage milieu involvement Reason for continued inpatient stay Substantial Risk for: rapid decompensation Time Spent With Patient Time: Total time managing care of this patient today ____ minutes.
[2023-12-20 20:00] VITALS: BP 123/76; PULSE 83; RESP 18; TEMP 36.9; O2SAT 93
[2023-12-20] MEDS: QUEtiapine Fumarate 25 MG TABLET 75 MG PO (23:05)
[2023-12-21] MEDS: Omeprazole 20 MG CAPSULE.DR PO ×2 (06:04→17:04)
[2023-12-21 08:00] VITALS: BP 152/106; PULSE 93; RESP 16; TEMP 36.5; O2SAT 97
[2023-12-21] MEDS: Sucralfate Oral Suspension 1 GM/10 ML ORAL.SUSP PO ×4 (09:39→20:59)
[2023-12-21] MEDS: Escitalopram Oxalate 5 MG TABLET 15 MG PO (09:40)
[2023-12-21] MEDS: Loratadine 10 MG TABLET PO (09:42)
[2023-12-21] MEDS: Nicotine Polacrilex 2 MG GUM 4 MG BUCCAL ×4 (09:47→22:59)
[2023-12-21 09:57] VITALS: BP 142/73; RESP 16
--- NOTE | 2023-12-21 17:48 | P.PNPSI_ITS ---
Subjective Subjective Date of Service: 12/21/23 Reason For Visit: depression, si Subjective Notes: Conditional Voluntary Healthcare Proxy: No Guardianship: No Medical Problems Affecting Mental Status: No Interim History: Pt seen, discussed with team. Attending some groups, but avoidant of milieu in general. Some visable time. Some socialization with peers. Asks about possible DC for Saturday Medication Compliance: Yes Side effects from medications: No Attending Groups: Intermittent Review of Systems Acute medical concerns: No Medical Review of Systems: unchanged Review of Systems Review of Systems Yes all other systems are reviewed and are negative Mental Status Exam Mental Status Exam Patient Appearance: Appropriate Patient Orientation: Person, Place, Time and Situation Level of Consciousness: Alert Patient Behavior: Talkative and Good Eye Contact Mood Description: Depressed Affect Description: Flat Patient Cognition Impaired: No Ability to Follow Directions: Good Speech Pattern: Spontaneous Speech Memory Description: Intact Hallucinations: None Delusions: Not Present Perceptual Disturbances: Depersonalization and Derealization Thought Process: Rumination Thought Content: positive for Perseveration Judgement: Good Diagnostics Vital Signs (24Hr): Vital Signs - 24 hr 12/20/23 20:00 12/21/23 08:00 12/21/23 09:57 Temperature 98.5 F 97.7 F Pulse Rate 83 93 Respiratory Rate 18 16 16 Blood Pressure 123/76 152/106 H 142/73 H Pulse Oximetry 93 97 Oxygen Delivery Method Room Air Room Air BMI result Body Mass Index 35.6 Labs 12/20/23 07:47 12/12/23 14:02 Labs: Laboratory Results - last 48 hr 12/19/23 12/20/23 20:12 07:47 WBC 11.8 H 11.7 H RBC 4.93 5.03 Hgb 13.6 L 13.8 L Hct 41.6 L 42.3 MCV 84.4 84.1 MCH 27.6 27.4 MCHC 32.7 32.6 RDW 15.0 14.9 Plt Count 344 344 MPV 10.1 10.2 Immature Gran % (Auto) 0.4 0.5 H Neut % (Auto) 60.9 63.7 Lymph % (Auto) 28.2 26.5 [place] % (Auto) 8.4 7.0 Eos % (Auto) 1.7 2.0 Baso % (Auto) 0.4 0.3 Lymph # (Auto) 3.3 3.1 [place] # (Auto) 1.0 0.8 Eos # (Auto) 0.2 0.2 Baso # (Auto) 0.1 0.0 Abs Immat Gran (auto) 0.05 H 0.06 H Absolute Neuts (auto) 7.2 7.5 Absolute Nucleated RBC 0.000 0.000 Nucleated RBC % (auto) 0.0 0.0 Total Bilirubin 0.1 Direct Bilirubin < 0.2 AST 20 ALT 22 Alkaline Phosphatase 93 Troponin I High Sens 5.7 Total Protein 7.5 Albumin 3.8 Lipase 30 Imaging Radiology Impressions: ITS Impressions Chest X-Ray 12/17/23 13:50 IMPRESSION: * Clear lungs. Sinuses X-Ray 12/17/23 13:50 IMPRESSION: Partial opacification of the left maxillary sinus, which could be better evaluated with a CT sinuses or ENT evaluation if warranted clinically. Medications Medications Current Medications Acetaminophen (Acetaminophen 325 Mg Tablet) 650 mg PO Q6H PRN PRN Reason: Headache/Pain Mild Scale (1-3) Last Admin: 12/16/23 21:35 Dose: 650 mg Al Hydroxide/Mg Hydroxide (Magnesium Hydrox/Alum Hydrox 30 Ml Oral.Susp) 30 ml PO Q6H PRN PRN Reason: Heartburn/Nausea Last Admin: 12/19/23 13:10 Dose: 30 ml Clonidine HCl (Clonidine Hcl 0.1 Mg Tablet) 0.1 mg PO Q4H PRN; Protocol PRN Reason: moderate anxiety Last Admin: 12/17/23 23:05 Dose: 0.1 mg Escitalopram Oxalate (Escitalopram Oxalate 5 Mg Tablet) 15 mg PO DAILY [facility] Last Admin: 12/21/23 09:40 Dose: 15 mg Hydroxyzine HCl (Hydroxyzine Hcl 25 Mg Tablet) 25 mg PO Q6H PRN PRN Reason: Anxiety Last Admin: 12/16/23 21:35 Dose: 25 mg Loratadine (Loratadine 10 Mg Tablet) 10 mg PO DAILY [facility] Last Admin: 12/21/23 09:42 Dose: 10 mg Magnesium Hydroxide (Milk Of Magnesia 30 Ml Oral.Susp) 30 ml PO DAILY PRN PRN Reason: Constipation Nicotine (Nicotine 21 Mg Patch.Td24) 21 mg TRANSDERMA DAILY PRN PRN Reason: smoking cessation Nicotine Polacrilex (Nicotine Polacrilex 2 Mg Gum) 4 mg BUCCAL Q2H PRN PRN Reason: Nicotine Cravings Last Admin: 12/21/23 14:16 Dose: 4 mg Nicotine Polacrilex (Nicotine Polacrilex Lozenge 2 Mg Lozenge) 2 mg BUCCAL Q2H PRN PRN Reason: Nicotine Cravings Last Admin: 12/19/23 22:26 Dose: 2 mg Omeprazole (Omeprazole 20 Mg Capsule.Dr) 20 mg PO BID@0630,1630 [facility] Last Admin: 12/21/23 17:04 Dose: 20 mg Quetiapine Fumarate (Quetiapine Fumarate 25 Mg Tablet) 25 mg PO BEDTIME PRN PRN Reason: insomnia Quetiapine Fumarate (Quetiapine Fumarate 25 Mg Tablet) 75 mg PO BEDTIME [facility] Last Admin: 12/20/23 23:05 Dose: 75 mg Sodium Chloride (Sodium Chloride 0.65 % Nasal 44 Ml Sprbtl) 1 spray NOSTRIL-B Q1H PRN PRN Reason: congestion Last Admin: 12/17/23 21:05 Dose: 1 spray Sucralfate (Sucralfate Oral Suspension 1 Gm/10 Ml Oral.Susp) 1 gm PO QIDACHS [facility] Last Admin: 12/21/23 17:04 Dose: 1 gm Trazodone HCl (Trazodone Hcl 100 Mg Tablet) 100 mg PO BEDTIME PRN PRN Reason: Insomnia Last Admin: 12/19/23 22:17 Dose: 100 mg Allergies Allergies Allergy/AdvReac Type Severity Reaction Status Date / Time No Known Allergies Allergy Verified 12/04/23 21:14 Assessment & Plan Assessment & Plan (1) Major depressive disorder, recurrent severe without psychotic features: Status: Acute Code(s): F33.2 - Major depressive disorder, recurrent severe without psychotic features (2) Suicidal ideation: Status: Acute Code(s): R45.851 - Suicidal ideations Plan Hospital course: 12/06 Patient says he is doing okay, still quite depressed; discussed that he has had really no history of medication trials, the few things he tried he quit after a week but that he is now really eager to not feel depressed anymore. Said he slept well with trazodone. Tolerating Lexapro and agrees to increase dose. 12/07 continue current treatment plan 12/09/23 DC Trazodone scheduled dose. Continue 50 mg HS prn Mirtazapine 15 mg HS 12/10/23 Decrease Mirtazapine to 7.5 mg hs 12/10: Discontinue Remeron Olanzapine 5 mg bid 12/11 Discontinue Olanzapine-pt ?experiencing SE 12/12 No changes today. Call to [facility], message left to learn what psychotropic medications pt was taking when TTP developed. 12/13 continue tx plan 12/14 continue tx plan 12/15 increase trazodone to 100mg at hs 12/16 Seroquel 25 mg HS. MRx1 prn Sinus xrays, chest xray 12/19/23 Hospitalist consult- GI pain, hx of ?ulcer. Pt did not follow up with his treatment plan. 12/20: Continue treatment Plan: CV Q 15 minute checks Increased lexapro 10 mg daily labs: folate, TSH, T4 A1C, Magnesium level, B12 level. Increase Trazodone to 100 mg HS with 50 mg HS prn consider lithium for chronic SI referral to trauma therapist and out pt psychiatry Encourage milieu involvement Informed Consent: understands Reason for continued inpatient stay Substantial Risk for: rapid decompensation Time Spent With Patient Time: Total time managing care of this patient today ____ minutes.
[2023-12-21 20:00] VITALS: BP 152/70; PULSE 79; RESP 18; TEMP 37.1; O2SAT 94
[2023-12-21] MEDS: QUEtiapine Fumarate 25 MG TABLET 75 MG PO (22:58)
[2023-12-22] MEDS: Omeprazole 20 MG CAPSULE.DR PO ×2 (06:27→17:37)
[2023-12-22 07:36] VITALS: BP 128/68; PULSE 68; RESP 16; TEMP 36.9; O2SAT 96
[2023-12-22] MEDS: Escitalopram Oxalate 5 MG TABLET 15 MG PO (09:13)
[2023-12-22] MEDS: Loratadine 10 MG TABLET PO (09:13)
[2023-12-22] MEDS: Sucralfate Oral Suspension 1 GM/10 ML ORAL.SUSP PO ×4 (09:13→21:05)
[2023-12-22] MEDS: Nicotine Polacrilex 2 MG GUM 4 MG BUCCAL ×4 (10:24→22:44)
--- NOTE | 2023-12-22 10:58 | P.PNPSI_ITS ---
Subjective Subjective Date of Service: 12/22/23 Reason For Visit: depression, si Subjective Notes: Conditional Voluntary Healthcare Proxy: No Guardianship: No Medical Problems Affecting Mental Status: No Interim History: Pt seen and discussed with the team. Pt in bed, resting, I will go to group today. Interactive with peers, continues to ask about a discharge for Saturday. Discussed Saturday. Denies current sx, SE. Denies SI/HI/AH/VH. Medication Compliance: Yes Side effects from medications: No Attending Groups: Intermittent Review of Systems Acute medical concerns: No Medical Review of Systems: unchanged Review of Systems Review of Systems Yes all other systems are reviewed and are negative Mental Status Exam Mental Status Exam Patient Appearance: Appropriate Patient Orientation: Person, Place, Time and Situation Level of Consciousness: Alert Patient Behavior: Talkative and Good Eye Contact Mood Description: Depressed Affect Description: Flat Patient Cognition Impaired: No Ability to Follow Directions: Good Speech Pattern: Spontaneous Speech Memory Description: Intact Hallucinations: None Delusions: Not Present Perceptual Disturbances: Depersonalization and Derealization Thought Process: Rumination Thought Content: positive for Perseveration Judgement: Good Diagnostics Vital Signs (24Hr): Vital Signs - 24 hr 12/21/23 20:00 12/22/23 07:36 Temperature 98.7 F 98.4 F Pulse Rate 79 68 Respiratory Rate 18 16 Blood Pressure 152/70 H 128/68 Pulse Oximetry 94 96 Oxygen Delivery Method Room Air Room Air BMI result Body Mass Index 35.6 Labs 12/20/23 07:47 12/12/23 14:02 Imaging Radiology Impressions: ITS Impressions Chest X-Ray 12/17/23 13:50 IMPRESSION: * Clear lungs. Sinuses X-Ray 12/17/23 13:50 IMPRESSION: Partial opacification of the left maxillary sinus, which could be better evaluated with a CT sinuses or ENT evaluation if warranted clinically. Medications Medications Current Medications Acetaminophen (Acetaminophen 325 Mg Tablet) 650 mg PO Q6H PRN PRN Reason: Headache/Pain Mild Scale (1-3) Last Admin: 12/16/23 21:35 Dose: 650 mg Al Hydroxide/Mg Hydroxide (Magnesium Hydrox/Alum Hydrox 30 Ml Oral.Susp) 30 ml PO Q6H PRN PRN Reason: Heartburn/Nausea Last Admin: 12/19/23 13:10 Dose: 30 ml Clonidine HCl (Clonidine Hcl 0.1 Mg Tablet) 0.1 mg PO Q4H PRN; Protocol PRN Reason: moderate anxiety Last Admin: 12/17/23 23:05 Dose: 0.1 mg Escitalopram Oxalate (Escitalopram Oxalate 5 Mg Tablet) 15 mg PO DAILY [facility] Last Admin: 12/22/23 09:13 Dose: 15 mg Hydroxyzine HCl (Hydroxyzine Hcl 25 Mg Tablet) 25 mg PO Q6H PRN PRN Reason: Anxiety Last Admin: 12/16/23 21:35 Dose: 25 mg Loratadine (Loratadine 10 Mg Tablet) 10 mg PO DAILY [facility] Last Admin: 12/22/23 09:13 Dose: 10 mg Magnesium Hydroxide (Milk Of Magnesia 30 Ml Oral.Susp) 30 ml PO DAILY PRN PRN Reason: Constipation Nicotine (Nicotine 21 Mg Patch.Td24) 21 mg TRANSDERMA DAILY PRN PRN Reason: smoking cessation Nicotine Polacrilex (Nicotine Polacrilex 2 Mg Gum) 4 mg BUCCAL Q2H PRN PRN Reason: Nicotine Cravings Last Admin: 12/22/23 10:24 Dose: 4 mg Nicotine Polacrilex (Nicotine Polacrilex Lozenge 2 Mg Lozenge) 2 mg BUCCAL Q2H PRN PRN Reason: Nicotine Cravings Last Admin: 12/19/23 22:26 Dose: 2 mg Omeprazole (Omeprazole 20 Mg Capsule.Dr) 20 mg PO BID@0630,1630 [facility] Last Admin: 12/22/23 06:27 Dose: 20 mg Quetiapine Fumarate (Quetiapine Fumarate 25 Mg Tablet) 25 mg PO BEDTIME PRN PRN Reason: insomnia Quetiapine Fumarate (Quetiapine Fumarate 25 Mg Tablet) 75 mg PO BEDTIME [facility] Last Admin: 12/21/23 22:58 Dose: 75 mg Sodium Chloride (Sodium Chloride 0.65 % Nasal 44 Ml Sprbtl) 1 spray NOSTRIL-B Q1H PRN PRN Reason: congestion Last Admin: 12/17/23 21:05 Dose: 1 spray Sucralfate (Sucralfate Oral Suspension 1 Gm/10 Ml Oral.Susp) 1 gm PO QIDACHS [facility] Last Admin: 12/22/23 09:13 Dose: 1 gm Trazodone HCl (Trazodone Hcl 100 Mg Tablet) 100 mg PO BEDTIME PRN PRN Reason: Insomnia Last Admin: 12/19/23 22:17 Dose: 100 mg Allergies Allergies Allergy/AdvReac Type Severity Reaction Status Date / Time No Known Allergies Allergy Verified 12/04/23 21:14 Assessment & Plan Assessment & Plan (1) Major depressive disorder, recurrent severe without psychotic features: Status: Acute Code(s): F33.2 - Major depressive disorder, recurrent severe without psychotic features (2) Suicidal ideation: Status: Acute Code(s): R45.851 - Suicidal ideations Plan Hospital course: 12/06 Patient says he is doing okay, still quite depressed; discussed that he has had really no history of medication trials, the few things he tried he quit after a week but that he is now really eager to not feel depressed anymore. Said he slept well with trazodone. Tolerating Lexapro and agrees to increase dose. 12/07 continue current treatment plan 12/09/23 DC Trazodone scheduled dose. Continue 50 mg HS prn Mirtazapine 15 mg HS 12/10/23 Decrease Mirtazapine to 7.5 mg hs 12/10: Discontinue Remeron Olanzapine 5 mg bid 12/11 Discontinue Olanzapine-pt ?experiencing SE 12/12 No changes today. Call to [facility], message left to learn what psychotropic medications pt was taking when TTP developed. 12/13 continue tx plan 12/14 continue tx plan 12/15 increase trazodone to 100mg at hs 12/16 Seroquel 25 mg HS. MRx1 prn Sinus xrays, chest xray 12/19/23 Hospitalist consult- GI pain, hx of ?ulcer. Pt did not follow up with his treatment plan. 12/19: Increase Seroquel to 75 mg HS Increase Lexapro to 15 mg daily. 12/21: Continue tx. Plan: CV Q 15 minute checks Increased lexapro 10 mg daily labs: folate, TSH, T4 A1C, Magnesium level, B12 level. Increase Trazodone to 100 mg HS with 50 mg HS prn consider lithium for chronic SI referral to trauma therapist and out pt psychiatry Encourage milieu involvement Informed Consent: understands Reason for continued inpatient stay Substantial Risk for: rapid decompensation Time Spent With Patient Time: Total time managing care of this patient today ____ minutes.
[2023-12-22 19:58] VITALS: BP 143/94; PULSE 82; RESP 18; TEMP 36.3; O2SAT 97
[2023-12-22] MEDS: QUEtiapine Fumarate 25 MG TABLET 75 MG PO (22:44)
[2023-12-23] MEDS: Omeprazole 20 MG CAPSULE.DR PO ×2 (05:35→17:26)
[2023-12-23] MEDS: Sucralfate Oral Suspension 1 GM/10 ML ORAL.SUSP PO ×4 (06:54→23:38)
[2023-12-23 07:30] VITALS: BP 147/81; PULSE 72; RESP 16; TEMP 36.7; O2SAT 97
[2023-12-23] MEDS: Escitalopram Oxalate 5 MG TABLET 15 MG PO (09:33)
[2023-12-23] MEDS: Loratadine 10 MG TABLET PO (09:33)
[2023-12-23] MEDS: Nicotine Polacrilex 2 MG GUM 4 MG BUCCAL ×2 (09:33→19:50)
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
[2023-12-23] MEDS: ARIPiprazole 5 MG TABLET PO (12:46)
[2023-12-24] MEDS: Nicotine Polacrilex 2 MG GUM 4 MG BUCCAL ×5 (01:04→21:53)
[2023-12-24] MEDS: Omeprazole 20 MG CAPSULE.DR PO ×2 (05:54→17:29)
[2023-12-24] MEDS: Sucralfate Oral Suspension 1 GM/10 ML ORAL.SUSP PO ×3 (06:37→22:30)
[2023-12-24 08:00] VITALS: BP 151/91; PULSE 70; RESP 16; TEMP 36.4; O2SAT 97
[2023-12-24] MEDS: ARIPiprazole 5 MG TABLET PO (09:13)
[2023-12-24] MEDS: Escitalopram Oxalate 20 MG TABLET PO (09:13)
[2023-12-24] MEDS: Loratadine 10 MG TABLET PO (09:13)
--- NOTE | 2023-12-24 16:27 | HO.PSYCHPN ---
Subjective Subjective Date of Service: 12/24/23 Reason For Visit: depression, si Subjective Notes: Conditional Voluntary Healthcare Proxy: No Guardianship: No Medical Problems Affecting Mental Status: No Interim History: Denies SI/HI/AH/VH. No current medication questions regarding changes in regime. Appears irritated, continues to refuse milieu which has been discussed with him daily. Plans discharge 12/24 to return to [facility]. Medication Compliance: Yes Side effects from medications: No Attending Groups: No Review of Systems Medical Review of Systems: unchanged Review of Systems Review of Systems Yes all other systems are reviewed and are negative Mental Status Exam Mental Status Exam Patient Appearance: Appropriate Patient Orientation: Person, Place, Time and Situation Level of Consciousness: Alert Patient Behavior: Talkative and Good Eye Contact Mood Description: Depressed Affect Description: Flat Patient Cognition Impaired: No Ability to Follow Directions: Good Speech Pattern: Spontaneous Speech Memory Description: Intact Hallucinations: None Delusions: Not Present Perceptual Disturbances: Depersonalization and Derealization Thought Process: Rumination Thought Content: positive for Perseveration Judgement: Good Diagnostics Vital Signs (24Hr): Vital Signs - 24 hr 12/24/23 08:00 Temperature 97.6 F Pulse Rate 70 Respiratory Rate 16 Blood Pressure 151/91 H Pulse Oximetry 97 Oxygen Delivery Method Room Air BMI result Body Mass Index 35.6 Labs 12/20/23 07:47 12/12/23 14:02 Imaging Radiology Impressions: ITS Impressions Chest X-Ray 12/17/23 13:50 IMPRESSION: * Clear lungs. Sinuses X-Ray 12/17/23 13:50 IMPRESSION: Partial opacification of the left maxillary sinus, which could be better evaluated with a CT sinuses or ENT evaluation if warranted clinically. Medications Medications Current Medications Acetaminophen (Acetaminophen 325 Mg Tablet) 650 mg PO Q6H PRN PRN Reason: Headache/Pain Mild Scale (1-3) Last Admin: 12/16/23 21:35 Dose: 650 mg Al Hydroxide/Mg Hydroxide (Magnesium Hydrox/Alum Hydrox 30 Ml Oral.Susp) 30 ml PO Q6H PRN PRN Reason: Heartburn/Nausea Last Admin: 12/19/23 13:10 Dose: 30 ml Aripiprazole (Aripiprazole 5 Mg Tablet) 5 mg PO DAILY [facility] Last Admin: 12/24/23 09:13 Dose: 5 mg Clonidine HCl (Clonidine Hcl 0.1 Mg Tablet) 0.1 mg PO Q4H PRN; Protocol PRN Reason: moderate anxiety Last Admin: 12/17/23 23:05 Dose: 0.1 mg Escitalopram Oxalate (Escitalopram Oxalate 20 Mg Tablet) 20 mg PO DAILY [facility] Last Admin: 12/24/23 09:13 Dose: 20 mg Hydroxyzine HCl (Hydroxyzine Hcl 25 Mg Tablet) 25 mg PO Q6H PRN PRN Reason: Anxiety Last Admin: 12/16/23 21:35 Dose: 25 mg Loratadine (Loratadine 10 Mg Tablet) 10 mg PO DAILY [facility] Last Admin: 12/24/23 09:13 Dose: 10 mg Magnesium Hydroxide (Milk Of Magnesia 30 Ml Oral.Susp) 30 ml PO DAILY PRN PRN Reason: Constipation Nicotine (Nicotine 21 Mg Patch.Td24) 21 mg TRANSDERMA DAILY PRN PRN Reason: smoking cessation Nicotine Polacrilex (Nicotine Polacrilex 2 Mg Gum) 4 mg BUCCAL Q2H PRN PRN Reason: Nicotine Cravings Last Admin: 12/24/23 14:08 Dose: 4 mg Nicotine Polacrilex (Nicotine Polacrilex Lozenge 2 Mg Lozenge) 2 mg BUCCAL Q2H PRN PRN Reason: Nicotine Cravings Last Admin: 12/19/23 22:26 Dose: 2 mg Omeprazole (Omeprazole 20 Mg Capsule.Dr) 20 mg PO BID@0630,1630 [facility] Last Admin: 12/24/23 05:54 Dose: 20 mg Quetiapine Fumarate (Quetiapine Fumarate 25 Mg Tablet) 25 mg PO BEDTIME PRN PRN Reason: insomnia Sodium Chloride (Sodium Chloride 0.65 % Nasal 44 Ml Sprbtl) 1 spray NOSTRIL-B Q1H PRN PRN Reason: congestion Last Admin: 12/17/23 21:05 Dose: 1 spray Sucralfate (Sucralfate Oral Suspension 1 Gm/10 Ml Oral.Susp) 1 gm PO QIDACHS [facility] Last Admin: 12/24/23 11:52 Dose: Not Given Trazodone HCl (Trazodone Hcl 100 Mg Tablet) 100 mg PO BEDTIME PRN PRN Reason: Insomnia Last Admin: 12/19/23 22:17 Dose: 100 mg Allergies Allergies Allergy/AdvReac Type Severity Reaction Status Date / Time No Known Allergies Allergy Verified 12/04/23 21:14 Assessment & Plan Assessment & Plan (1) Major depressive disorder, recurrent severe without psychotic features: Status: Acute Code(s): F33.2 - Major depressive disorder, recurrent severe without psychotic features (2) Suicidal ideation: Status: Acute Code(s): R45.851 - Suicidal ideations Plan Hospital course: 12/06 Patient says he is doing okay, still quite depressed; discussed that he has had really no history of medication trials, the few things he tried he quit after a week but that he is now really eager to not feel depressed anymore. Said he slept well with trazodone. Tolerating Lexapro and agrees to increase dose. 12/07 continue current treatment plan 12/09/23 DC Trazodone scheduled dose. Continue 50 mg HS prn Mirtazapine 15 mg HS 12/10/23 Decrease Mirtazapine to 7.5 mg hs 12/10: Discontinue Remeron Olanzapine 5 mg bid 12/11 Discontinue Olanzapine-pt ?experiencing SE 12/12 No changes today. Call to [facility], message left to learn what psychotropic medications pt was taking when TTP developed. 12/13 continue tx plan 12/14 continue tx plan 12/15 increase trazodone to 100mg at hs 12/16 Seroquel 25 mg HS. MRx1 prn Sinus xrays, chest xray 12/19/23 Hospitalist consult- GI pain, hx of ?ulcer. Pt did not follow up with his treatment plan. 12/19: Increase Seroquel to 75 mg HS Increase Lexapro to 15 mg daily. 12/21: Continue tx. 12/23: Discharge 12/24. Plan: CV Q 15 minute checks Increased lexapro 10 mg daily labs: folate, TSH, T4 A1C, Magnesium level, B12 level. Increase Trazodone to 100 mg HS with 50 mg HS prn consider lithium for chronic SI referral to trauma therapist and out pt psychiatry Encourage milieu involvement Reason for continued inpatient stay Substantial Risk for: stable for discharge Time Spent With Patient Time: Total time managing care of this patient today ____ minutes.
[2023-12-24 20:00] VITALS: BP 146/92; PULSE 71; RESP 16; TEMP 37; O2SAT 97
[2023-12-25] MEDS: Nicotine Polacrilex 2 MG GUM 4 MG BUCCAL (03:38)
[2023-12-25] MEDS: hydrOXYzine HCL 25 MG TABLET PO (03:38)
[2023-12-25] MEDS: Omeprazole 20 MG CAPSULE.DR PO (07:20)
[2023-12-25] MEDS: Sucralfate Oral Suspension 1 GM/10 ML ORAL.SUSP PO (07:20)
[2023-12-25 08:05] VITALS: BP 154/95; PULSE 75; RESP 18; TEMP 36.5; O2SAT 99
[2023-12-25] MEDS: Escitalopram Oxalate 20 MG TABLET PO (09:26)
[2023-12-25] MEDS: ARIPiprazole 5 MG TABLET PO (09:26)
[2023-12-25] MEDS: Loratadine 10 MG TABLET PO (09:26)
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
--- NOTE | 2024-01-20 16:39 | PM.EVENT ---
Documented by User: Tracy Ivan SaundersShariAugustusadrianstephanie, [employer] 01/20/24 16:43 Event Note Date of Service: 01/20/24 Event Note: Call from pt who reports Seroquel 25 mg is too strong-when he awakens during the night he feels too groggy and asks if we can make a change. Discussed Mirtazapine 3.75-7.5 mg HS trial and he agrees we can trial this. Trazodone by history has been ineffective. Overall reports an improvement in depressive sx, things are going well, he has connected with therapy and with [facility] and feels life is moving forward for him at this time. Rx sent for #7 tabs. Time Spent With Patient Time: Total time managing care of this patient today ____ minutes. Documented by User: Christiano Carter MD 02/11/24 10:09 Event Note Date of Service: 02/11/24
== END 2023-12-25 11:43 | disposition other institution (70) | DRG 885 ==
LOC: HO.ED 21:57 → HO.PM5 12-05 12:38
PROVIDERS: Internal Medicine; Physician Assistant; Admitting Provider Clinical Nurse Specialist Psychiatric/Mental Health, Adult; Emergency Provider Emergency Medicine; Visit Provider Clinical Nurse Specialist Psychiatric/Mental Health, Adult
DX: F33.2 Major depressive disorder, recurrent severe without psychotic features (principal); R45.851 Suicidal ideations; J30.9 Allergic rhinitis, unspecified; F43.10 Post-traumatic stress disorder, unspecified; F17.210 Nicotine dependence, cigarettes, uncomplicated; Z20.822 Contact with and (suspected) exposure to COVID-19; Z63.4 Disappearance and death of family member; Z71.6 Tobacco abuse counseling; Z79.899 Other long term (current) drug therapy
CPT/HCPCS: 0241U; 36415; 70220; 71046; 80053; 80061; 80076; 80143; 80179; 80307; 81001; 82607; 82746; 83036; 83690; 83735; 84439; 84443; 84484; 85007; 85025; 85027; 87633; 93005; 99285

== ENCOUNTER 2023-12-05 12:30 | Outpatient (BNV) | payer MEDICARE, MEDICAID, SELFPAY | END 2023-12-12 13:28 | PROVIDERS: Admitting Provider Clinical Nurse Specialist Psychiatric/Mental Health, Adult; Emergency Provider Emergency Medicine; Visit Provider Internal Medicine Cardiovascular Disease | DX: R07.9 Chest pain, unspecified (principal) | CPT/HCPCS: 93010 ==

== ENCOUNTER → 2023-12-05 12:30 | Outpatient (BNV) | payer MEDICARE, MEDICAID, SELFPAY | PROVIDERS: Admitting Provider Clinical Nurse Specialist Psychiatric/Mental Health, Adult; Emergency Provider Emergency Medicine; Visit Provider Clinical Nurse Specialist Psychiatric/Mental Health | DX: F33.2 Major depressive disorder, recurrent severe without psychotic features (principal); R45.851 Suicidal ideations; F43.11 Post-traumatic stress disorder, acute | CPT/HCPCS: 90792; 99231; 99232; 99238; 99499 ==